=== PATIENT | male | born 1945 | race Caucasian/White ===

== ENCOUNTER 2019-01-06 22:54 | Inpatient (IN) | payer MEDICARE, OTHER ==
[~2019-01-06] VITALS: Ht 177.8 cm; Wt 74.8 kg
--- NOTE | 2019-01-06 22:54 | NUR ---
PT BIB AMBULANCE ALS TO BED 7
--- NOTE | 2019-01-06 22:55 | NUR ---
PT BIBA ALS S/P [facility] CALLING FOR PT HAVING SOB WORSENING OVER 30 MIN. ON ARRIVAL PT REPIRATIONS EVEN, TACHYPNEIC, WITH COURSE CRACKLES IN BILAT BASES. PT TACHYCARDIC AT 154, DIAPHORETIC AND PALE. +3 PITTING EDEMA IN BILAT LOWER EXTREMS. PLACED ON VENT ON ARRIVAL 92% SPO2 ON BVM. NO COMPLAINTS OF PAIN, NVPS USED. PT PLACED ON FULL MONITOR, BED IN LOW POSITION/LOCKED. SIDE RAILS UP X 1. DR. VAUGHN AT BEDSIDE.
[2019-01-06] MEDS ORDERED: NACL 0.9% 1,000 ML IV SCH (23:00)
[2019-01-06 23:05] VITALS: BP 114/71
[2019-01-06] MEDS ORDERED: ALBUTEROL SULFATE/IPRATROPIU 3 ML SOL IH ONE (23:05)
[2019-01-06] MEDS ORDERED: NACL 0.9% 1,000 ML IV ONE (23:05)
[2019-01-06] MEDS ORDERED: DOCU250S72 GT (23:06)
[2019-01-06] MEDS ORDERED: FERR325E14 GT (23:06)
[2019-01-06] MEDS ORDERED: OLAN2.5T1 GT (23:06)
[2019-01-06] MEDS ORDERED: ASCO500T45 PO (23:06)
[2019-01-06] MEDS ORDERED: SENN-72 GT (23:06)
[2019-01-06] MEDS ORDERED: MIRABULK GT (23:06)
[2019-01-06] MEDS ORDERED: AMLO5TAB GT (23:06)
[2019-01-06] MEDS ORDERED: METO-485 PO (23:06)
[2019-01-06] MEDS ORDERED: MIRT15TA GT (23:06)
[2019-01-06] MEDS ORDERED: GUAI-920 GT (23:06)
[2019-01-06] MEDS ORDERED: MULT-2253 GT (23:06)
--- NOTE | 2019-01-06 23:40 | NUR ---
PT AWAKE AND ALERT. VSS AT THIS TIME. BEDRAILS X2 UP. BED IN LOWEST POSITION. WILL CONTINUE TO MONITOR.
[2019-01-06 23:47] LABS: HEMATOCRIT 24.3 % (36-52); HEMOGLOBIN 7.9 g/dL (12.0-18.0); MEAN CORPUSCULAR HEMOGLOBIN 31 pg (27-31); MEAN CORPUSCULAR HGB CONC 33 g/dL (33-37); MEAN CORPUSCULAR VOLUME 94.3 fL (80-94); PLATELET COUNT (AUTO) 350 K/uL (140-450); RED BLOOD CELL COUNT(AUTO) 2.58 MIL/uL (4.20-6.10); RED CELL DISTRIBUTION WIDTH 16.1 % (11.6-13.7)
[2019-01-06 23:55] LABS: ANION GAP 8.3 (8-16); CARBON DIOXIDE 36.3 mmol/L (21-32); CHLORIDE 92 mmol/L (98-107); CREATININE 0.6 mg/dL (0.7-1.3); GLUCOSE 152 mg/dL (74-106); POTASSIUM 4.6 mmol/L (3.5-5.1); SODIUM SERUM 132 mmol/L (136-145); UREA NITROGEN, BLOOD 31 mg/dL (7-18)
[2019-01-06] MEDS ORDERED: DILTIAZEM 25 MG/5 ML VIAL IVP ONE (23:55)
[2019-01-07] VITALS (78 sets, daily range): BP systolic 81–139; BP diastolic 28–83
--- NOTE | 2019-01-07 00:05 | NUR ---
DILTIAZEM HELD AT THIS TIME, BP 92/53. ERMD MADE AWARE.
[2019-01-07 00:09] LABS: ALBUMIN 1.6 g/dL (3.4-5.0); ASPARTATE AMINOTRANSFERASE 77 U/L (15-37); TOTAL BILIRUBIN 0.2 mg/dL (0.0-1.0); WHITE BLOOD COUNT (AUTO) 16.8 K/uL (4.8-10.8)
[2019-01-07 00:10] LABS: EOSINOPHILS % (MANUAL) 1 % (0-4); LYMPHOCYTES % (MANUAL) 4 % (20-46); MONOCYTES % (MANUAL) 7 % (5-12)
[2019-01-07] MEDS ORDERED: PIPERACILLIN/TAZOBACTAM 3.375 GM in DEXTROSE 5% 50 ML IV ONE (00:15)
[2019-01-07] MEDS ORDERED: NACL 0.9% 1,000 ML IV ONE (00:15)
[2019-01-07] MEDS ORDERED: NACL 0.9% 1,000 ML IV SCH (00:28)
[2019-01-07] MEDS ORDERED: ONDANSETRON 4 MG/2 ML VIAL IM/IVP PRN (00:30)
[2019-01-07] MEDS ORDERED: MORPHINE SULFATE 2 MG/ML SYR IVP PRN (00:30)
[2019-01-07] MEDS ORDERED: PIPERACILLIN/TAZOBACTAM 3.375 GM VIAL IV ONE (00:30)
[2019-01-07] MEDS ORDERED: DOCUSATE SODIUM 100 MG GELCAP PO PRN (00:30)
[2019-01-07 00:58] LABS: PROTHROMBIN TIME 9.5 secs (10.8-13.4)
--- NOTE | 2019-01-07 01:00 | NUR ---
Dr. Raman evaluating patient
[2019-01-07 01:08] LABS: FREE T4 (FREE THYROXINE) 1.17 ng/dL (0.76-1.46); MAGNESIUM 2.6 mg/dL (1.8-2.4); PHOSPHORUS 4.2 mg/dL (2.5-4.9); THYROID STIMULATING HORMONE 6.27 uIU/mL (0.34-3.74)
--- NOTE | 2019-01-07 01:08 | NUR ---
IV to left forearm infiltrated. Dr. Patricio made aware. Dr. Raman made aware. Multiple attempts made to get new IV site and Dr. Patricio and Dr. Raman made aware.
--- NOTE | 2019-01-07 01:50 | NUR ---
Patient will be admitted to care of Dr De Leon. Admited to ICU. Will go to room ICU 1. Belongings list completed. Report to PAUL Buckner. Transfer of care at this time.
--- NOTE | 2019-01-07 02:10 | NUR ---
0200 transfered patient to icu 1. pt being bagged with 100%. pt placed back on vent with same settings.
--- NOTE | 2019-01-07 02:10 | NUR ---
PT REFUSED CENTRAL LINE. MD POLLARD AT BEDSIDE. PT REFUSED ALL VACCINES AND A LEVINE CATHETER. PATIENT'S SKIN IS INTACT. IV IN LEFT FOREARM, C/D/I AND PATENT. WILL CONTINUE TO MONITOR.
--- NOTE | 2019-01-07 02:30 | NUR ---
MD POLLARD MADE AWARE OF LAB RESULTS FOR PATIENT, INCLUDING ALBUMIN 1.6 WELL VS, EKG SVT HR 159. MD POLLARD TO INPUT ORDERS. PT AXOX3. WILL CONTINUE TO MONITOR.
[2019-01-07] MEDS ORDERED: AMIODARONE 150 MG in DEXTROSE 5% 100 ML IV ONE (02:40)
[2019-01-07] MEDS: AMIODARONE 450 MG in DEXTROSE 5% 250 ML IV SCH ×2 (02:56→12:07)
[2019-01-07] MEDS ORDERED: AMIODARONE 450 MG/9 ML VIAL IV ONE (03:00)
[2019-01-07] MEDS ORDERED: AMIODARONE 150 MG/3 ML VIAL IV ONE (03:00)
[2019-01-07] MEDS: DEXT 5% /NACL 0.9% 1,000 ML IV SCH ×3 (03:54→23:39)
--- NOTE | 2019-01-07 06:35 | NUR ---
RECVD PT ON [place] VENT SETTINGS: AC14, 500, +5, 40% ALARMS ON & AUDIBLE. AMBU BAG AT [facility], VENT IS PLUGGED INTO RED OUTLET, B/S CLEAR BILATERALLY, PT REFUSED SUCTIONING AT THIS TIME. PT IS TRACHED W/SHILEY #8. SKIN INTEGRITY IS INTACT, PT AWAKE AND ALERT W/NO SIGNS OF DISTRESS AT THIS TIME.
[2019-01-07] MEDS ORDERED: VANCOMYCIN PER PHARMACY MC PRN (06:55)
[2019-01-07] MEDS: METOCLOPRAMIDE 10 MG TAB GT SCH ×4 (06:56→23:29)
--- NOTE | 2019-01-07 07:30 | NUR ---
OBTAINED REPORT FROM ASSISTANT ACCOUNT EXECUTIVE NURSE AT BEDSIDE, PT IS AAOX4, MOUTH WORDS, ABLE TO FOLLOW COMMANDS AND MAKE NEEDS KNOWN, VSS, C/O PAIN TO ABDOMEN, 5/10, TRACH TO VENT WITH FIO2 40, TV 500, R 14, PEEP 5, RHONCHI LUNG SOUNDS WILFRED, O2 SAT 93%, SVT ON DRIVER SALES AT 150, SOFT ROUND ABDOMEN WITH ACTIVE BOWEL SOUNDS, GT IN PLACE, NPO EXCEPT MEDS AT THIS TIME, INCONTINENT WITH B&B'S, GENERALIZED WEAKNESS TO ALL EXTREMITIES, SKIN IS WARM AND DRY TO TOUCH, IV SITE TO LEFT FOREARM 20GA, PATENT, RUNNING AMIODARONE AT 1 MG/MIN, AND D5 NS AT 70ML/HR, HOB ELEVATED 30 DEGREES, SAFETY MEASURES IN PLACE, WILL CONTINUE TO MONITOR.
[2019-01-07] MEDS: SODIUM FERRIC GLUCONATE 125 MG in NACL 0.9% 100 ML IV SCH (07:58)
[2019-01-07] MEDS: POLYETHYLENE GLYCOL 17 GM/PKT GT SCH (08:01)
[2019-01-07] MEDS: HYDROcodone/APAP 7.5/325 MG 1 TAB PO PRN (08:01)
[2019-01-07] MEDS: LACTOBACILLUS RHAMNOSUS GG 1 EACH CAP PO SCH (08:01)
[2019-01-07] MEDS: DOCUSATE 100 MG/10 ML UDC GT SCH (08:01)
[2019-01-07] MEDS: FAMOTIDINE 20 MG/2 ML VIAL IVP SCH (08:02)
--- NOTE | 2019-01-07 08:15 | NUR ---
SCHEDULED MEDICATION GIVEN, ORAL CARE PROVIDED, POSITION CHANGED FOR OFF LOAD PRESSURE.
[2019-01-07] MEDS: PIPER/TAZO 3.375GM/D5W PREMIX 50 ML IV SCH ×3 (09:06→23:29)
[2019-01-07] MEDS: VANCOMYCIN 1,250 MG in DEXTROSE 5% 250 ML IV SCH ×2 (09:31→21:30)
--- NOTE | 2019-01-07 09:56 | NUR ---
PATIENT HAS BEEN SCREENED AND CATEGORIZED HIGH NUTRITION RISK. PATIENT WILL BE SEEN WITHIN 1-2 DAYS OF ADMISSION. 01/07/19-01/08/[address]
--- NOTE | 2019-01-07 10:00 | NUR ---
PT IS RESTING IN BED, NO S/S OF DISTRESS, DENIES PAIN, POSITION CHANGED FOR OFF LOAD PRESSURE.
--- NOTE | 2019-01-07 10:30 | NUR ---
HR STILL 151, INFORMED DR. BRENNAN, NEW ORDERED OBTAINED.
[2019-01-07] MEDS ORDERED: DIGOXIN 0.25 MG/ML AMP IV SCH (11:00)
--- NOTE | 2019-01-07 11:15 | NUR ---
HR WENT DOWN TO 71, BP 95/48, PT IS AAO, NO S/S OF DISTRESS, DENIES PAIN.
--- NOTE | 2019-01-07 12:00 | NUR ---
PT IS WATCHING TV, NO S/S OF DISTRESS, DENIES PAIN, VSS, ORAL CARE PROVIDED, POSITION CHANGED FOR OFF LOAD PRESSURE.
--- NOTE | 2019-01-07 12:59 | NUR ---
01/07/19 RD INITIAL ASSESSMENT COMPLETED PLEASE REFER TO NUTRITION ASSESSMENT UNDER CARE ACTIVITY FOR ESTIMATED NUTRITIONAL NEEDS. 1. INITIATE TF VIA PEG TUBE WITH JEVITY 1.2 @ GOAL RATE 60 ML/HR WITH 100 ML FWF Q4H TO PROVIDE 1728 CALORIES, 80 GRAMS PROTEIN, AND TOTAL FLUIDS 1762 ML. RECOMMENDED REGIMEN MEETS 97% ESTIMATED CALORIE NEEDS AND 89% LOWER ESTIMATED PROTEIN NEEDS. 2. RD TO FOLLOW-UP 2-3 DAYS, HIGH RISK OLGA [address]O RD
--- NOTE | 2019-01-07 13:10 | NUR ---
DR. GARCIA AT BEDSIDE TO EXPLAIN NEED FOR PICC LINE INSERTION. PT.AGREED. CONSENT SIGNED.
--- NOTE | 2019-01-07 13:15 | NUR ---
PICC LINE NURSE NOTIFIED OF NEED FOR PICC LINE INSERTION. STATED THAT [facility] WILL BE HERE TO INSERT PICC LINE. UNABLE TO GIVE ETA.
[2019-01-07 13:34] LABS: BASOPHILS % (AUTO) 0.1 % (0.0-2.0); EOSINOPHILS # (AUTO) 0.1 K/uL (0-0.4); EOSINOPHILS % (AUTO) 0.4 % (0.0-4.0); HEMATOCRIT 22.1 % (36-52); HEMOGLOBIN 7.2 g/dL (12.0-18.0); LYMPHOCYTES # (AUTO) 0.8 K/uL (2.0-11.5); LYMPHOCYTES % (AUTO) 4.4 % (20.5-51.1); MEAN CORPUSCULAR HEMOGLOBIN 31 pg (27-31); MEAN CORPUSCULAR HGB CONC 33 g/dL (33-37); MEAN CORPUSCULAR VOLUME 93.8 fL (80-94); MONOCYTES # (AUTO) 1.6 K/uL (0.8-1.0); MONOCYTES % (AUTO) 9.5 % (1.7-9.3); NEUTROPHILS # (AUTO) 14.8 K/uL (1.8-7.7); NEUTROPHILS % (AUTO) 85.6 % (42.2-75.2); PLATELET COUNT (AUTO) 322 K/uL (140-450); RED BLOOD CELL COUNT(AUTO) 2.36 MIL/uL (4.20-6.10); RED CELL DISTRIBUTION WIDTH 16.4 % (11.6-13.7); WHITE BLOOD COUNT (AUTO) 17.3 K/uL (4.8-10.8)
[2019-01-07 13:53] LABS: ANION GAP 7.8 (8-16); CARBON DIOXIDE 32.9 mmol/L (21-32); CHLORIDE 93 mmol/L (98-107); CREATININE 0.6 mg/dL (0.7-1.3); GLUCOSE 122 mg/dL (74-106); POTASSIUM 4.7 mmol/L (3.5-5.1); SODIUM SERUM 129 mmol/L (136-145); UREA NITROGEN, BLOOD 23 mg/dL (7-18)
--- NOTE | 2019-01-07 14:00 | NUR ---
NO CHANGE OF CONDITION, VSS, DENIES PAIN, POSITION CHANGED FOR OFF LOAD PRESSURE.
--- NOTE | 2019-01-07 15:30 | NUR ---
DR. GUERRERO CAME IN TO SEE PT AT BEDSIDE, UPDATED PT'S CONDITION, WILL FOLLOW UP WITH NEW ORDERS.
--- NOTE | 2019-01-07 16:00 | NUR ---
TEMP 101.6F NOTED, TYLENOL GIVEN, COOLING MEASURE IN PLACE, PM CARE AND ORAL CARE PROVIDED, F/C CARE PROVIDED, POSITION CHANGED FOR OFF LOAD PRESSURE, WILL CONTINUE TO MONITOR,
[2019-01-07] MEDS: ACETAMINOPHEN 325 MG TAB PO PRN (16:24)
--- NOTE | 2019-01-07 17:23 | NUR ---
TUBE FEEDING STARTED AT 10ML/HR
--- NOTE | 2019-01-07 18:00 | NUR ---
TEMP WENT DOWN TO 99.1F AT THIS TIME, NO S/S OF DISTRESS, VSS, DENIES PAIN, POSITION CHANGED FOR OFF LOAD PRESSURE.
[2019-01-07] MEDS ORDERED: AMIODARONE 200 MG TAB PO SCH (18:30)
--- NOTE | 2019-01-07 18:55 | NUR ---
RECEIVED TRACH PT WITH A SHILEY 8 XLT TRACH ON VENT. SETTINGS AC 14, VT 500, PEEP 5 AND 40% FIO2. PT SUCTIONED OBTAINED SMALL AMOUNT OF THICK YELLOW SECRETIONS, AIRWAY IS PATENT AND TRACH IS SECURE. PT IS AWAKE IN BED WATCHING NOT SOB. VENT IS PLUGGED INTO A RED OUTLET WITH ALARMS ON AND FUNCTIONING. WILL CONTINUE TO MONITOR.
--- NOTE | 2019-01-07 19:12 | NUR ---
REPORT GIVEN TO MANAGER STYLIST NURSE FOR CONTINUE OF CARE, PT IS IN STABLE CONDITION AT THIS TIME.
--- NOTE | 2019-01-07 19:15 | NUR ---
ASSUMED CARE OF PT.INITIAL ASSESSMENT COMPLETED.PT AWAKE; ABLE TO MOUTH WORD NEEDS.SR ON MONITOR.TRACH TO VENT FIO2 40% TV 500 AC 14 PEEP 5. RHONCHI STILL NOTED.PT WITH MODERATE AMT OF YELLOW SECRETIONS PER ORAL AND TRACH.SUCTIONED NEEDED.NO SOB NOTED AT THIS TIME.SLIGHT REDNESS TO LT SIDE TRACH SITE STILL NOTED.WITH GTUBE INTACT.ON GTUBE FEEDING JEVITY 1.2 AT 10ML/HR, TOLERATING ,NO RESIDUAL NOTED. WILL INCREASE RATE ORDERED.W/SMALL BRUISING TO BUE.PERIPHERAL IV TO LT F/A INTACT, INFUSING ORDERED IVF AND AMIODARONE DRIP 450MG IN 250ML D5W AT 0.5MG/MIN.WILL DC AMIODARONE DRIP AT [address] BRENNAN, PAPER MACHINE TENDER.PT INCONTINENT OF URINE.REMINDED TO USE CALL LIGHT FOR ASSISTANCE.BED IN LOW POSITION.DENIES PAIN.
--- NOTE | 2019-01-07 19:30 | NUR ---
DR Lina BRENNAN, CHANGE OF ADDRESS CLERK AT BEDSIDE; PT EXAMINED.HR 78 SINUS RHYTHM , PT DENIES CHEST PAIN/CHEST TIGHTNESS.AMIODARONE DRIP DC'D ORDERED.NO NEW ORDERS
--- NOTE | 2019-01-07 20:30 | NUR ---
PT TUBE FEEDING INCREASED TO 20ML/HR WITH 100ML WATER FLUSH Q4HRS ORDERED.PT TOLERATING.NO RESIDUALS NOTED.WILL CONTINUE TO MONITOR
[2019-01-07] MEDS: AMIODARONE 200 MG TAB PO SCH (21:00)
--- NOTE | 2019-01-07 21:03 | NUR ---
PHONE CALL TO DR POLLARD; UPDATED ON PTS PRESENT CONDITION.ONGOING PICC LINE INSERTION.PT AWAKE ALERT AND ORIENTED.HEMOGLOBIN LEVEL 7.2 hct 22.1 at 1238 DRAW; DR POLLARD SAID TO HOLD HEPARIN SUBQ AT THIS TIME.
--- NOTE | 2019-01-07 21:14 | NUR ---
PHONE CALL TO PHARMACIST REGARDING AMIODARONE DOSE 400MG AT 2100; AMIODARONE 400MG TAB GIVEN AT 1831, AMIODARONE ROSA DC'D AT 1930 ; PHARMACIST SAID TO VERIFY WITH MD; PHONE CALL TO DR POLLARD, INFORMED OF THE AMIODARONE DOSE; MD SAID NOT TO GIVE 2100 DOSE; TO START IN AM
--- NOTE | 2019-01-07 21:19 | NUR ---
US GUIDED PICC LINE INSERTION COMPLETED; XRAY DONE.PICC LINE NURSE WEST WROTE OK TO USE PICC LINE; DR POLLARD AWARE. PT TOLERATED THE PROCEDURE.NO SOB NOTED.SR ON MONITOR.NO ACTIVE BLEEDING NOTED ON SITE.DRESSING APPLIED BY PICC LINE NURSE.
[2019-01-07] MEDS: MIRTAZAPINE 15 MG TAB GT SCH (21:29)
[2019-01-07] MEDS: SENNA 8.6 MG TAB GT SCH (21:29)
[2019-01-07] MEDS: OLANZapine 2.5 MG TAB GT SCH (21:30)
[2019-01-07] MEDS: ALBUTEROL SULFATE/IPRATROPIU 3 ML SOL IH SCH (21:44)
--- NOTE | 2019-01-07 22:30 | NUR ---
PT INCONTINENT OF URINE.LINENS AND GOWN CHANGED.TOLERATED.NO SOB NOTED.HR 86 SR;DENIES PAIN
--- NOTE | 2019-01-07 23:20 | NUR ---
PT SUCTIONED OBTAINED SMALL AMOUNT OF THICK PALE YELLOW SECRETIONS, AIRWAY IS PATENT AND TRACH IS SECURE. WILL CONTINUE TO MONITOR.
[2019-01-07 23:55] LABS: APPEARANCE,URINE CLEAR (CLEAR); BILIRUBIN,URINE NEGATIVE (NEGATIVE); BLOOD, URINE NEGATIVE (NEGATIVE); COLOR,URINE YELLOW (YELLOW); LEUKOCYTE ESTERASE ,URINE NEGATIVE (NEGATIVE); NITRITE, URINE NEGATIVE (NEGATIVE); UGLUCOSE NEGATIVE (NEGATIVE)
[2019-01-08] VITALS (21 sets, daily range): BP systolic 11–131; BP diastolic 43–75
--- NOTE | 2019-01-08 00:54 | NUR ---
VENT CHECK COMPLETED, PT IN BED WATCHING TV NOT IN ANY DISTRESS. WILL CONTINUE TO MONITOR.
--- NOTE | 2019-01-08 01:20 | NUR ---
PT AWAKE; TUBE FEEDING CHECKED, NO RESIDUALS, FEEDING INCREASED TO 30ML/HR.PT DENIES N/V; DENIES PAIN.STILL WITH INTERMITTENT PRODUCTIVE COUGHING NOTED.ABLE TO SUCTION YELLOW THICK SECRETIONS.
--- NOTE | 2019-01-08 03:05 | NUR ---
PT ASLEEP AT THIS TIME NOT IN ANY DISTRESS. WILL CONTINUE TO MONITOR.
--- NOTE | 2019-01-08 03:45 | NUR ---
pt coughing intermittently; suctioned thick yellow secretions.02sat 99% trach to vent.same vent settings.
--- NOTE | 2019-01-08 04:45 | NUR ---
temporal temp 100.7 ;cooling measures rendered; tylenol administered as ordered.
[2019-01-08] MEDS: ACETAMINOPHEN 325 MG TAB PO PRN ×2 (04:48→20:22)
[2019-01-08] MEDS: METOCLOPRAMIDE 10 MG TAB GT SCH (05:18)
--- NOTE | 2019-01-08 05:30 | NUR ---
temp rechecked 99.8 temporal.pt asleep ;easily arousable.still on vent.secretions suctioned.no sob noted.denies pain
[2019-01-08] MEDS: ALBUTEROL SULFATE/IPRATROPIU 3 ML SOL IH SCH ×3 (07:02→19:00)
--- NOTE | 2019-01-08 07:03 | NUR ---
RECEIVED PT ON DOCUMENTED SETTINGS, ALARMS SET AND AUDIBLE, VENT PLUGGED INTO RED OUTLETS AND BVM AT BEDSIDE. NO DISTRESS NOTED AT THIS TIME
--- NOTE | 2019-01-08 08:00 | NUR ---
PATIENT AWAKE, ALERT ORIENTED, WITH TRACHEOSTOMY TO VENTILATOR AC 14 FIO2 40% PEEP 5 SO2 >94% NORMAL NON LABORED EVEN BREATHING, SINUS RHYTHM ON MONITOR, DENIES ANY PAIN AT THIS TIME, WITH PEG AND TUBE ON JEVITY 40ML/HR-CHECKED RESIDUALS AND ZERO AT THIS TIME, INCREASED JEVITY TO 50 ML/HR PER PROTOCOL, BLOATED NON TENDER ABDOMEN, NORMAL BOWEL SOUNDS, ON COLACE AND MIRALAX, INCONTINENT AND REFUSED LEVINE CATHETER INSERTION, SKIN INTACT, PURPLISH DISCOLORATION ON BOTH FOREARMS, CALL SCHUMACHER WITHIN REACH. WILL CONTINUE TO MONITOR
[2019-01-08] MEDS: DOCUSATE 100 MG/10 ML UDC GT SCH (08:08)
[2019-01-08] MEDS: POLYETHYLENE GLYCOL 17 GM/PKT GT SCH (08:08)
[2019-01-08] MEDS: LACTOBACILLUS RHAMNOSUS GG 1 EACH CAP PO SCH (08:09)
[2019-01-08] MEDS: AMIODARONE 200 MG TAB PO SCH ×2 (08:09→20:18)
[2019-01-08] MEDS: FAMOTIDINE 20 MG/2 ML VIAL IVP SCH (08:09)
[2019-01-08] MEDS: PIPER/TAZO 3.375GM/D5W PREMIX 50 ML IV SCH ×3 (08:10→23:16)
[2019-01-08] MEDS ORDERED: PROBIOTIC SCREEN 1 EA MISC MC PRN (08:10)
[2019-01-08 08:12] LABS: ANION GAP 10.5 (8-16); CARBON DIOXIDE 30.4 mmol/L (21-32); CHLORIDE 94 mmol/L (98-107); CREATININE 0.6 mg/dL (0.7-1.3); GLUCOSE 94 mg/dL (74-106); POTASSIUM 3.9 mmol/L (3.5-5.1); SODIUM SERUM 131 mmol/L (136-145); UREA NITROGEN, BLOOD 15 mg/dL (7-18)
[2019-01-08 08:32] LABS: MAGNESIUM 2.4 mg/dL (1.8-2.4); PHOSPHORUS 3.6 mg/dL (2.5-4.9)
[2019-01-08 08:39] LABS: MEAN CORPUSCULAR HEMOGLOBIN 31 pg (27-31); MEAN CORPUSCULAR HGB CONC 33 g/dL (33-37); MEAN CORPUSCULAR VOLUME 94.7 fL (80-94); PLATELET COUNT (AUTO) 319 K/uL (140-450); RED BLOOD CELL COUNT(AUTO) 2.13 MIL/uL (4.20-6.10); RED CELL DISTRIBUTION WIDTH 16.5 % (11.6-13.7); WHITE BLOOD COUNT (AUTO) 13.8 K/uL (4.8-10.8)
[2019-01-08 08:49] LABS: HEMATOCRIT 20.2 % (36-52); HEMOGLOBIN 6.7 g/dL (12.0-18.0)
[2019-01-08] MEDS: SODIUM FERRIC GLUCONATE 125 MG in NACL 0.9% 100 ML IV SCH (08:50)
[2019-01-08 09:19] LABS: EOSINOPHILS % (MANUAL) 2 % (0-4); LYMPHOCYTES % (MANUAL) 6 % (20-46); MONOCYTES % (MANUAL) 12 % (5-12)
[2019-01-08 09:20] LABS: FOLIC ACID 16.6 ng/mL (>3.0)
[2019-01-08] MEDS: VANCOMYCIN 1,250 MG in DEXTROSE 5% 250 ML IV SCH ×2 (09:42→20:23)
--- NOTE | 2019-01-08 11:01 | NUR ---
CONDOM CATHETER APPLIED AND SECURED, CONNECTED TO URO BAG. PATIENT CONSENTED TO IT. WILL CONTINUE TO MONITOR
--- NOTE | 2019-01-08 11:25 | NUR ---
DR. GUERRERO AT BEDSIDE. PHYSICIAN ORDERED TO RT ADELA TO DO CPAP TRIAL TODAY. IV FLUID TO KVO RATE-NOTED
[2019-01-08 11:29] LABS: MEAN CORPUSCULAR HEMOGLOBIN 31 pg (27-31); MEAN CORPUSCULAR HGB CONC 33 g/dL (33-37); MEAN CORPUSCULAR VOLUME 94.4 fL (80-94); PLATELET COUNT (AUTO) 322 K/uL (140-450); RED BLOOD CELL COUNT(AUTO) 2.19 MIL/uL (4.20-6.10); RED CELL DISTRIBUTION WIDTH 16.9 % (11.6-13.7); WHITE BLOOD COUNT (AUTO) 14.1 K/uL (4.8-10.8)
[2019-01-08 11:34] LABS: HEMOGLOBIN 6.8 g/dL (12.0-18.0)
[2019-01-08 11:35] LABS: HEMATOCRIT 20.7 % (36-52)
[2019-01-08] MEDS ORDERED: ACETAMINOPHEN 325 MG TAB PO SCH (11:40)
[2019-01-08 11:47] LABS: EOSINOPHILS % (MANUAL) 2 % (0-4); LYMPHOCYTES % (MANUAL) 5 % (20-46); MONOCYTES % (MANUAL) 10 % (5-12)
[2019-01-08] MEDS ORDERED: ACETAMINOPHEN 650 MG/20.3 ML UDC NG SCH (11:48)
[2019-01-08] MEDS ORDERED: diphenhydrAMINE 12.5 MG/5 ML UDC NG SCH (11:49)
--- NOTE | 2019-01-08 12:00 | NUR ---
ZERO GASTRIC RESIDUAL AT THIS TIME, JEVITY INCREASED TO 60ML/HR
[2019-01-08 12:39] LABS: BASOPHILS % (AUTO) 0.2 % (0.0-2.0); EOSINOPHILS # (AUTO) 0.2 K/uL (0-0.4); EOSINOPHILS % (AUTO) 1.2 % (0.0-4.0); LYMPHOCYTES # (AUTO) 0.6 K/uL (2.0-11.5); LYMPHOCYTES % (AUTO) 3.9 % (20.5-51.1); MEAN CORPUSCULAR HEMOGLOBIN 32 pg (27-31); MEAN CORPUSCULAR HGB CONC 34 g/dL (33-37); MEAN CORPUSCULAR VOLUME 93.9 fL (80-94); MONOCYTES # (AUTO) 1.6 K/uL (0.8-1.0); NEUTROPHILS # (AUTO) 12.3 K/uL (1.8-7.7); NEUTROPHILS % (AUTO) 83.7 % (42.2-75.2); PLATELET COUNT (AUTO) 339 K/uL (140-450); RED BLOOD CELL COUNT(AUTO) 2.22 MIL/uL (4.20-6.10); RED CELL DISTRIBUTION WIDTH 16.4 % (11.6-13.7); WHITE BLOOD COUNT (AUTO) 14.7 K/uL (4.8-10.8)
[2019-01-08] MEDS: METOCLOPRAMIDE 10 MG/10 ML SYRP UDC GT SCH ×3 (12:53→23:16)
[2019-01-08] MEDS: HYDROcodone/APAP 7.5/325 MG 1 TAB PO PRN (12:53)
[2019-01-08 12:54] LABS: HEMATOCRIT 20.9 % (36-52)
--- NOTE | 2019-01-08 13:00 | NUR ---
REPEAT CBC WAS DRAWN IN PATIENT'S ARM AND HGB RESULT FRO IT IS 7. DR. GARCIA MADE AWARE OF THIS RESULT, PATIENT HAS NO ACTIVE SIGNS OF BLEEDING. PER PHYSICIA "NO INDICATION" TO TRANSFUSE BLOOD AT THIS TIME"
--- NOTE | 2019-01-08 13:08 | NUR ---
PT RETURNED TO PREVIOUS A/C SETTINGS DUE TO ELEVATED RR
--- NOTE | 2019-01-08 13:30 | NUR ---
CALLED DR. GUERRERO AND UPDATED THAT PATIENT IS NOW BACK ON FULL SUPPORT PATIENT WENT TACHYPNEIC. NO FURTHER ORDERS RECEIVED
--- NOTE | 2019-01-08 13:55 | NUR ---
WOUND CARE NURSE AT BEDSIDE, REPOSITIONED PATIENT. ZGUARD APPLIE TO SACRAL AREAS AND GROINS TO PREVENT EXCORIATION FROM URINATION CONDOM CATHETER GETS DISCONNECTED IN BETWEEN. SKIN IS INTACT
--- NOTE | 2019-01-08 15:08 | NUR ---
PATIENT RESPIRATORY RATE 14-20 NOW, SO2 95% NON LABORED BREATHING
--- NOTE | 2019-01-08 17:19 | NUR ---
PT REFUSED TRACH CARE
--- NOTE | 2019-01-08 18:42 | NUR ---
GASTRIC RESIDUALS CHECKED=0ML
--- NOTE | 2019-01-08 19:10 | NUR ---
Received pt stable on vent support at documented settings, suctioned small amounts of thick white yellow secretions, hhn tx given, tolerated well, no resp distress or SOB noted at this time, Shiley 8 XLT trach secured/patent/midline, alarms set and audible, ambu bag at bedside, vent plugged into red outlet, cont pulse ox on, will cont to monitor.
--- NOTE | 2019-01-08 19:30 | NUR ---
RECEIVED PT FROM AM SHIFT. PT IS ALERT ORIENTED X4,MOUTH WORDS.PT IS ON TRACH TO VENT WITH SETTING AC RATE 14,TV 500,FIO2 40% AND PEEP OF 5 TOLERATING WELL, NO S/S OF ANY DISTRESS,NO SOB. SPO2 97%. ON RIDING SILKS CUSTODIAN SR WITH BBB PT WITH HX OF A FIB. PICC LINE TO RIGHT UPPER ARM DOUBLE LUMENS IV D5 IN NS AT 5 CC/HR. PERIPHERAL LINE TO LFA NO 20 INTACT WELL.SKIN WARM TO TOUCH T 100.4,COOL MEASURE GIVEN . GT TO LEFT UPPER QUADRANT ABD. FEEDING JEVITY 1.2 AT 60 CC/HR AND 100 CC/HR H20. NO RESIDUAL NOTED. ABD SOFT DISTENDED AND ROUND. PT NO BM YET PER REPORT. CONDOM CATH IN PLACE WITH YELLOW CLEAR URINE. CONT TO MONITOR CLOSELY.
[2019-01-08] MEDS: OLANZapine 2.5 MG TAB GT SCH (20:19)
[2019-01-08] MEDS: SENNA 8.6 MG TAB GT SCH (20:19)
[2019-01-08] MEDS: MIRTAZAPINE 15 MG TAB GT SCH (20:19)
--- NOTE | 2019-01-08 20:30 | NUR ---
PT STILL HAVE FEVER T 100.4, TYLENOL GIVEN ORDER AND CONT COOLING MEASURE. NIGHTS MEDS GIVEN VANCOMYCIN IV ABT GIVEN ORDER.
--- NOTE | 2019-01-08 21:00 | NUR ---
RECHECK TEMP,NO MORE FEVER TEMP DOWN TO T 97.2. CONT TO MONITOR. PT LOOK CALM AND WATCHING TV. DENIAL ANY PAIN.
--- NOTE | 2019-01-08 23:30 | NUR ---
REGLAN AND ZOSYN IV ABT GIVEN. TOLERATED WELL.
[2019-01-09] VITALS (14 sets, daily range): BP systolic 93–132; BP diastolic 41–52
--- NOTE | 2019-01-09 01:27 | NUR ---
PT SLEEP WELL, NO S/S OF ANY PAIN OR DISCOMFORT.
--- NOTE | 2019-01-09 04:00 | NUR ---
AM CARE GIVEN, RODGER CARE GIVEN,MOUTH CARE GIVEN AND SPONGE BATH GIVEN. KEPT CLEAN AND DRY.CALL LIGHT IN REACH.
[2019-01-09] MEDS: DEXT 5% /NACL 0.9% 1,000 ML IV SCH (05:07)
[2019-01-09] MEDS: METOCLOPRAMIDE 10 MG/10 ML SYRP UDC GT SCH ×3 (05:07→18:11)
--- NOTE | 2019-01-09 05:44 | NUR ---
AM MEDS GIVEN TOLERATING WELL.
[2019-01-09 05:51] LABS: ANION GAP 8.3 (8-16); CARBON DIOXIDE 32.7 mmol/L (21-32); CHLORIDE 97 mmol/L (98-107); CREATININE 0.6 mg/dL (0.7-1.3); GLUCOSE 112 mg/dL (74-106); SODIUM SERUM 134 mmol/L (136-145); UREA NITROGEN, BLOOD 13 mg/dL (7-18)
--- NOTE | 2019-01-09 05:55 | NUR ---
PT NO BM YET AT THIS TIME WILL ENDORESED TO NEXT SHIFT TO COLLECT THE STOOL FOR OCCULT BLOOD. NO S/S OF BLEEDING.
[2019-01-09] MEDS: ALBUTEROL SULFATE/IPRATROPIU 3 ML SOL IH SCH ×3 (07:08→18:53)
--- NOTE | 2019-01-09 07:19 | NUR ---
STARTED PT ON CPAP TRIAL 1-2 HRS EFREN (RR 20, HR 76, SPO2 98 ON 40% FIO2)
--- NOTE | 2019-01-09 07:19 | NUR ---
RECEIVED PT ON DOCUMENTED SETTINGS, ETT SECURED AND PATENT, ALARMS SET AND AUDIBLE, BVM AT BEDSIDE, VENTILATOR PLUGGED IN TO RED OUTLETS. NO DISTRESS NOTED AT THIS TIME.
--- NOTE | 2019-01-09 07:20 | NUR ---
REPORT GIVEN TO AM SHIFT.PT IS STABLE.
--- NOTE | 2019-01-09 08:00 | NUR ---
PATIENT AWAKE, ALERT ORIENTED, WITH TRACHEOSTOMY TO VENTILATOR AC 14 FIO2 40% PEEP 5 SO2 >94% NORMAL NON LABORED EVEN BREATHING, SINUS RHYTHM ON MONITOR, DENIES ANY PAIN AT THIS TIME, WITH PEG AND TUBE ON JEVITY 60ML/HR.-CHECKED RESIDUALS AND ZERO AT THIS TIME, BLOATED NON TENDER ABDOMEN, NORMAL BOWEL SOUNDS, ON COLACE AND MIRALAX, INCONTINENT ON CONDOM CATHETER, SKIN INTACT, PURPLISH DISCOLORATION ON BOTH FOREARMS AND RIGHT UPPER HIP AREA, CALL SCHUMACHER WITHIN REACH. WILL CONTINUE TO MONITOR
[2019-01-09 08:15] LABS: MAGNESIUM 2.4 mg/dL (1.8-2.4); PHOSPHORUS 4.5 mg/dL (2.5-4.9)
[2019-01-09] MEDS: SODIUM FERRIC GLUCONATE 125 MG in NACL 0.9% 100 ML IV SCH (08:15)
[2019-01-09] MEDS: PIPER/TAZO 3.375GM/D5W PREMIX 50 ML IV SCH ×2 (08:24→18:11)
--- NOTE | 2019-01-09 08:30 | NUR ---
DR. GARCIA MADE AWARE THAT STOOL FOR OCCULT BLOOD NOT YET SENT PATIENT HAS NO BOWEL MOVEMENT YET. NO FURTHER ORDERS RECEIVED
[2019-01-09 08:31] LABS: BASOPHILS % (AUTO) 0.1 % (0.0-2.0); EOSINOPHILS # (AUTO) 0.3 K/uL (0-0.4); EOSINOPHILS % (AUTO) 2.3 % (0.0-4.0); LYMPHOCYTES # (AUTO) 0.6 K/uL (2.0-11.5); MEAN CORPUSCULAR HEMOGLOBIN 32 pg (27-31); MEAN CORPUSCULAR HGB CONC 34 g/dL (33-37); MEAN CORPUSCULAR VOLUME 95.2 fL (80-94); MONOCYTES # (AUTO) 1.6 K/uL (0.8-1.0); MONOCYTES % (AUTO) 12.9 % (1.7-9.3); NEUTROPHILS # (AUTO) 9.8 K/uL (1.8-7.7); NEUTROPHILS % (AUTO) 79.7 % (42.2-75.2); PLATELET COUNT (AUTO) 338 K/uL (140-450); RED BLOOD CELL COUNT(AUTO) 2.12 MIL/uL (4.20-6.10); RED CELL DISTRIBUTION WIDTH 16.5 % (11.6-13.7); WHITE BLOOD COUNT (AUTO) 12.3 K/uL (4.8-10.8)
[2019-01-09 08:34] LABS: HEMOGLOBIN 6.8 g/dL (12.0-18.0)
[2019-01-09 08:35] LABS: HEMATOCRIT 20.2 % (36-52)
[2019-01-09] MEDS: DOCUSATE 100 MG/10 ML UDC GT SCH (08:50)
[2019-01-09] MEDS: POLYETHYLENE GLYCOL 17 GM/PKT GT SCH (08:50)
[2019-01-09] MEDS: AMIODARONE 200 MG TAB PO SCH ×2 (08:50→21:30)
[2019-01-09] MEDS: FAMOTIDINE 20 MG/2 ML VIAL IVP SCH (08:50)
[2019-01-09] MEDS: LACTOBACILLUS RHAMNOSUS GG 1 EACH CAP PO SCH (08:50)
[2019-01-09] MEDS: Z-GUARD PASTE TP SCH (08:51)
--- NOTE | 2019-01-09 09:00 | NUR ---
PLACED PT BACK ON ORIGINAL A/C SETTINGS DUE TO TACHYPNEA (RR 46, HR 82, SPO2 98 ON 40% FIO2)
[2019-01-09] MEDS: VANCOMYCIN 1,250 MG in DEXTROSE 5% 250 ML IV SCH ×2 (09:25→21:31)
--- NOTE | 2019-01-09 10:18 | NUR ---
CALLED BLOOD BANK STAFF TO ASK IF PACKED CELL IS READY AND IT IS NOT AND THEY WILL THIS RN AGAIN ONCE READY
--- NOTE | 2019-01-09 11:15 | NUR ---
BLOOD TRANSFUSION STARTED. VERIFIED WITH ICU CN MARLA. WILL CONTINUE TO MONITOR
[2019-01-09] MEDS: FUROSEMIDE 20 MG TAB PO SCH ×2 (11:31→18:00)
[2019-01-09] MEDS ORDERED: ACETAMINOPHEN 325 MG TAB PO SCH (12:00)
--- NOTE | 2019-01-09 14:09 | NUR ---
BLOOD TRANSFUSION ENDED. PATIENT NOT SHOWING ANY REACTIONS SO FAR. BP115/50, HEART RATE 80 BPM, SO2 94% Addendum: 01/09/19 at 1411 by Rukhsana Samson RN TEMPORAL TEMPERATURE 98.8f
--- NOTE | 2019-01-09 14:19 | NUR ---
CALLED DR. BRENNAN AND UPDATED HIM OF PATIENT'S CONDITION: OCCASIONAL UNIFOCAL PVCs NOTED, RELAYED CHEMISTRY RESULT TODAY AND K+, Mg NORMAL, PATIENT DENIES PAIN AND STATUS POST 1 UNIT PACKED CELL TRANSFUSION DUE TO HEMOGLOBIN 6.8 AND PATIENT WILL BE TRANSFERRED TO TELEMETRY. "OK TO BE TRANSFERRED TO TELEMETRY AND CONTINUE TO MONITOR" PER PHYSICIAN
--- NOTE | 2019-01-09 15:15 | NUR ---
TRANSFERRED PATIENT TO TELEMETRY VIA ICU BED AND ON MONITOR, WITH RT . BELONGINGS BROUGHT WITH PATIENT . PATIENT HAD 650 URINE OUTPUT FROM UROBAG AND REPORT GIVEN TO DARRIN MILLER. PATIENT ALERT ORIENTED, NO SIGNS OF DISTRESS.
--- NOTE | 2019-01-09 15:15 | NUR ---
TRANSFERRED PT FROM ICU 1 TO [facility] 122B PT BAGGED WITH NO DITRESS NOTED BEFORE DURING OR AFTER TRANSPORT. PT RETURNED TO PREVIOUS A/C SETTINGS VENTILATOR PLUGGED INTO RED OUTLETS AND BVM AT BEDSIDE.
--- NOTE | 2019-01-09 15:30 | NUR ---
REPORT RECEIVED FROM INTERNIST TANISHA. PATIENT TRANSFERRED TO ROOM 122B. PATIENT TRACH TO VENT, AWAKE AND ALERT, USES CLIPBOARD TO VERBALIZE HIS NEEDS. PATIENT CURRENTLY HAS GTUBE TO LEFT UPPER QUADRANT, GTUBE AUSCULTATED FOR PLACEMENT, 0 ML OF RESIDUAL NOTED. PATIENT HAS PICC LINE TO RIGHT UPPER ARM DOUBLE LUMEN, INTACT, AND SALINE LOCKED, LFA 20G SALINE LOCKED. PATIENT HAS CONDOM CATH, DRAINING YELLOW URINE. PATIENT DENIES PAIN. SAFETY PRECAUTIONS IN PLACE, CALL LIGHT WITHIN REACH, WILL CONTINUE TO MONITOR PATIENT.
--- NOTE | 2019-01-09 16:15 | NUR ---
PATIENT SUCTIONED WITH SECRETIONS MULTIPLE TIMES. PATIENT REPOSITIONED FOR COMFORT. PATIENT CURRENTLY TACHYPNIC. PATIENT SUCTIONED AGAIN. RT CALLED. WAITING FOR RT TO COME AND ASSESS THE PATIENT. SAFETY PRECAUTIONS IN PLACE, CALL LIGHT WITHIN REACH, WILL CONTINUE TO MONITOR PATIENT.
[2019-01-09] MEDS: ALBUTEROL SULFATE/IPRATROPIU 3 ML SOL IH PRN ×2 (17:01→17:26)
--- NOTE | 2019-01-09 17:02 | NUR ---
PATIENT PRESENTING WITH INCREASED SOB AT 33 BPM BREATH SOUNDS COARSE RHONCHI BILATERAL WITH SHALLOW CHEST RISE DEEP TRACHEAL SUCTION FOR MODERATE THIN YELLOW SECRETION OROPHARYNGEAL SUCTION FOR COPIOUS PALE YELLOW TO HAZY SECRETIONS HHN PRN THERAPY AND RESPIRATORY DRUGS X 2 GIVEN AT THIS TIME
--- NOTE | 2019-01-09 17:12 | NUR ---
INFORMED DR. CHILDS ABOUT PATIENT'S BLOOD TRANSFUSION BEING FINISHED, WAITING FOR NEW ORDERS. RT STILL WITH PATIENT. WILL CONTINUE TO MONITOR PATIENT.
[2019-01-09 17:50] LABS: HEMATOCRIT 28.3 % (36-52); HEMOGLOBIN 9.4 g/dL (12.0-18.0); MEAN CORPUSCULAR HEMOGLOBIN 31 pg (27-31); MEAN CORPUSCULAR HGB CONC 33 g/dL (33-37); MEAN CORPUSCULAR VOLUME 92.6 fL (80-94); PLATELET COUNT (AUTO) 452 K/uL (140-450); RED BLOOD CELL COUNT(AUTO) 3.06 MIL/uL (4.20-6.10)
--- NOTE | 2019-01-09 17:52 | NUR ---
PATIENT AGITATED, REQUESTED FOR MEDICATION TO CALM HIM DOWN. CALLED THE RESIDENTS, NO ANSWER AT THE MOMENT, WILL FOLLOW UP.
--- NOTE | 2019-01-09 18:20 | NUR ---
ORDERED MEDICATIONS GIVEN. GTUBE AUSCULTATED FOR PLACEMENT, 0 ML OF RESIDUAL NOTED. MEDICATIONS GIVEN WITH 20 ML OF WATER. PATIENT TOLERATED IT WELL. SAFETY PRECAUTIONS IN PLACE, CALL LIGHT WITHIN REACH, WILL CONTINUE TO MONITOR PATIENT.
[2019-01-09 18:38] LABS: EOSINOPHILS % (MANUAL) 1 % (0-4); LYMPHOCYTES % (MANUAL) 7 % (20-46); MONOCYTES % (MANUAL) 10 % (5-12)
--- NOTE | 2019-01-09 19:07 | NUR ---
REPORT GIVEN TO FASHION ADVISER NURSE AT BEDSIDE FOR CONTINUITY OF CARE. PATIENT IN STABLE CONDITION.
--- NOTE | 2019-01-09 19:08 | NUR ---
RECEIVED PT FROM AM SHIFT, PATIENT AWAKE, ALERT ORIENTED, WITH COMMUNICATION BOARD, WITH TRACHEOSTOMY TO VENTILATOR AC, FIO2 40% PEEP 5, FLOW 40, PMAX 50; VT 500; NORMAL NON LABORED EVEN BREATHING, DENIES ANY PAIN AT THIS TIME, WITH PEG TUBE ON JEVITY 1. 2 60ML/HR, CHECKED RESIDUALS AND 5ML AT THIS TIME, DISTENDED NON TENDER ABDOMEN, NORMAL BOWEL SOUNDS, INCONTINENT ON CONDOM CATHETER, SKIN INTACT, PURPLISH DISCOLORATION ON BOTH FOREARMS AND RIGHT UPPER HIP AREA, CALL SCHUMACHER WITHIN REACH. WILL CONTINUE TO MONITOR
--- NOTE | 2019-01-09 19:08 | NUR ---
RECEIVED PATIENT CHRONIC TRACH SHILEY 8 XLT TO VENT ON SETTINGS AC/VC 500, 14, +5, 40%. VENT CHECK DONE. VENT PLUGGED INTO RED OUTLET. AMBU BAG AT BEDSIDE. VENT ALARMS ON AND AUDIBLE. CONTINUOUS PULSE OX ON AND FUNCTIONING; ALARMS ON AND AUDIBLE. PULSE OX PROBE CHANGED. SCHEDULED BREATHING TREATMENT ADMINISTERED. TOLERATED TX WELL, NO ADVERSE SIDE EFFECTS. AIRWAY SECURE. PATIENT REFUSING TO BE SUCTIONED AT THIS TIME. NO RESPIRATORY DISTRESS NOTED AT THIS TIME. WILL CONTINUE TO MONITOR.
[2019-01-09] MEDS ORDERED: VANCOMYCIN 1,000 MG VIAL ONE (21:13)
[2019-01-09] MEDS: OLANZapine 2.5 MG TAB GT SCH (21:28)
[2019-01-09] MEDS: SENNA 8.6 MG TAB GT SCH (21:29)
[2019-01-09] MEDS: MIRTAZAPINE 15 MG TAB GT SCH (21:30)
--- NOTE | 2019-01-09 23:10 | NUR ---
WITH RN AT PATIENT BEDSIDE. PATIENT APPEARS TO HAVE G-TUBE FEEDING CONTENTS AND FLUIDS LEAKING THROUGH TACH STOMA. TRACH DRESSING AND CLOTHING SATURATED IN FLUIDS. BREATH SOUNDS RHONCHI. SUCTIONED SMALL AMOUNT OF THICK YELLOW SECRETIONS. CALLED DR. POLLARD TO COME ASSESS PATIENT AT BEDSIDE.
--- NOTE | 2019-01-09 23:25 | NUR ---
DR. POLLARD INFORMED PT IS DISTENDED, RT AT BEDSIDE ASKED HER TO CHANGE THE TRACH DRESSING. ALTHOUGH RT HAS JUST HAS CHANGED IT 20 MINS AGO.
--- NOTE | 2019-01-09 23:30 | NUR ---
DR. POLLARD AT BEDSIDE, HE ORDERED TO STOP THE FEEDING AT THIS TIME. WILL WAIT FOR FURTHER ORDERS.
[2019-01-10] VITALS: BP 108/56
[2019-01-10] MEDS: PIPER/TAZO 3.375GM/D5W PREMIX 50 ML IV SCH ×2 (00:48→08:41)
--- NOTE | 2019-01-10 01:00 | NUR ---
INFORMED DR. POLLARD THAT VITAL SIGNS ARE WNL; BUT ECG IS QUADRIGEMINY.PT IS DIAPHORETIC; GASTRIC FEEDING COMING OUT OF THE TRACH SITE. RT AT BEDSIDE CHANGING TRACH DRESSING, SUNCTIONED PT. AWAITING FOR 'S ORDERS
[2019-01-10] MEDS: METOCLOPRAMIDE 10 MG/10 ML SYRP UDC GT SCH ×5 (01:02→23:44)
--- NOTE | 2019-01-10 01:18 | NUR ---
RADIOLOGY HERE, AND DID XRAY OF THE CHEST 1 VIEW.
--- NOTE | 2019-01-10 01:46 | NUR ---
SUCTIONED MODERATE AMOUNT OF THIN, YELLOW SECRETIONS
--- NOTE | 2019-01-10 03:15 | NUR ---
INFORMED DR. POLLARD ON THE XRAY RESULT -IMPRESSION SMALL BILATERAL EFFUSION, R LOWER LOBE PNA, STABLE. PT HAD NOT SLEPT THE WHOLE NIGHT.
[2019-01-10 04:00] VITALS: BP 131/67
--- NOTE | 2019-01-10 04:32 | NUR ---
CHECKED ON PT, CLEANED AND TURNED PT. STILL GT TUBE CONTENTS SEEPING THROUGH GT TUBE, MODERATE AMOUNT.
--- NOTE | 2019-01-10 05:59 | NUR ---
LARGE AMOUNT OF BLACK STOOL NOTED, PT'S STILL ABDOMEN DISTENDED, LESS DISTENDED THAN LAST NIGHT . STILL W/ G-TUBE FEEDING COMING OUT FROM THE TRACH SITE, MINIMAL AMOUNT. WILL INFORM
[2019-01-10] MEDS: ALBUTEROL SULFATE/IPRATROPIU 3 ML SOL IH SCH ×3 (07:03→20:28)
--- NOTE | 2019-01-10 07:13 | NUR ---
RECEIVED TRACH PT WITH A SHILEY 8 XLT TRACH ON VENT. SETTINGS AC 14, VT 500, PEEP 5 AND 40% FIO2. PT SUCTIONED OBTAINED SMALL AMOUNT OF THICK YELLOW SECRETIONS, AIRWAY IS PATENT AND TRACH IS SECURE. PT IS AWAKE IN BED WATCHING TV NOT SOB. VENT IS PLUGGED INTO A RED OUTLET WITH ALARMS ON AND FUNCTIONING. WILL CONTINUE TO MONITOR.
--- NOTE | 2019-01-10 07:16 | NUR ---
RECEIVED PT FROM BILINGUAL SALES CONSULTANT RN. PATIENT AAOX4 WITH COMMUNICATION BOARD TO COMMUNICATE NEEDS. TRACHEOSTOMY TO VENTILATOR. BREATHING IS NORMAL AND NON-LABORED AT THIS TIME. PT DENIES ANY PAIN AT THIS TIME. G-TUBE FEEDING ON HOLD AT THIS TIME DUE TO ABD DISTENDED BUT NON-TENDER. NORMAL BOWEL SOUNDS. INCONTINENT. SKIN INTACT BUT PURPLISH DISCOLORATION ON BOTH FOREARMS AND RIGHT UPPER HIP AREA, CALL SCHUMACHER WITHIN REACH. WILL CONTINUE TO MONITOR.
--- NOTE | 2019-01-10 07:25 | NUR ---
PT AWAKEA, O X 4, IN BED, NO DISTRESS AT THIS TIME ENDORSED TO NEXT SHIFT FOR CONTINUITY OF CARE.
[2019-01-10 08:00] VITALS: BP 119/81
[2019-01-10] MEDS: POLYETHYLENE GLYCOL 17 GM/PKT GT SCH (08:41)
[2019-01-10] MEDS: LACTOBACILLUS RHAMNOSUS GG 1 EACH CAP PO SCH (08:42)
[2019-01-10] MEDS: DOCUSATE 100 MG/10 ML UDC GT SCH (08:42)
[2019-01-10] MEDS: AMIODARONE 200 MG TAB PO SCH (08:43)
[2019-01-10] MEDS: FAMOTIDINE 20 MG/2 ML VIAL IVP SCH (08:43)
[2019-01-10] MEDS: Z-GUARD PASTE TP SCH (08:44)
--- NOTE | 2019-01-10 08:45 | NUR ---
SCHEDULED MEDS ADMINISTERED TO PT. PT TOLERATED THEM WELL. ALL NEEDS MET AT THIS TIME. WILL RESTART FEEDING AT 40ML/HR ORDERED. ALL NEEDS CURRENTLY MET. WILL ROUND FREQUENTLY ON PT.
--- NOTE | 2019-01-10 09:16 | NUR ---
PT FEEDING RESTARTED AT 40ML/HR. WILL REASSESS FOR RESIDUAL Q1H.
--- NOTE | 2019-01-10 09:57 | NUR ---
PT IS REFUSING PT EVAL AT THIS TIME. PT IN STABLE CONDITION, DR AWARE OF REFUSAL.
--- NOTE | 2019-01-10 10:15 | NUR ---
PT TOLERATING FEEDING WELL. NO RESIDUALS PRESENT. A LOT OF GAS REMOVED THROUGH G-TUBE.
[2019-01-10] MEDS: SIMETHICONE 40 MG/0.6 ML GT SCH ×3 (10:32→17:23)
[2019-01-10] MEDS: VANCOMYCIN 1,250 MG in DEXTROSE 5% 250 ML IV SCH (10:34)
[2019-01-10] MEDS: NACL 0.9% 500 ML IV SCH (10:51)
--- NOTE | 2019-01-10 10:57 | NUR ---
PT SLEEPING IN BED. NO SIGNS OF PAIN. NO RESIDUAL FROM FEEDING. WILL CONTINUE TO ROUND FREQUENTLY.
[2019-01-10 12:00] VITALS: BP 131/53
--- NOTE | 2019-01-10 12:59 | NUR ---
01/10/19 RD FOLLOW UP COMPLETED PLEASE REFER TO NUTRITION ASSESSMENT UNDER CARE ACTIVITY FOR ESTIMATED NUTRITIONAL NEEDS. 1. CONTINUE JEVITY 1.2 AT 40 ML/HR MEDICALLY NECESSARY -THIS WILL PROVIDE A VOLUME OF 960 ML, 1152 KCAL, AND 53 GM PRO. IT MEETS 65% OF PT ENERGY NEEDS AND 59% OF PROTEIN NEED. 2. ADVANCE TUBE FEED RATE TO 60 ML/HR WHEN PT IS MEDCIALLY STABLE TO TOLERATE HIGHER RATE 3. RD TO FOLLOW-UP 2-3 DAYS, HIGH RISK PAM VAIL RD
[2019-01-10] MEDS ORDERED: MEROPENEM 1,000 MG in NACL 0.9% 100 ML IV SCH (13:00)
--- NOTE | 2019-01-10 13:04 | NUR ---
PT RESTING IN BED WITH TV ON. CO COMPLAINTS OF PAIN OR DISTRESS AT THIS TIME. VITAL SIGNS STABLE. WILL CONTINUE TO ROUND FREQUENTLY ON PT.
[2019-01-10] MEDS: CLINDAMYCIN PHOS 600MG/D5W PM 50 ML IV SCH ×2 (13:39→20:29)
[2019-01-10] MEDS: LEVOFLOXACIN 750 MG/D5W PREMIX 150 ML IV SCH (14:47)
[2019-01-10 15:02] LABS: MEAN CORPUSCULAR HEMOGLOBIN 31 pg (27-31); MEAN CORPUSCULAR HGB CONC 34 g/dL (33-37); MEAN CORPUSCULAR VOLUME 93.2 fL (80-94); PLATELET COUNT (AUTO) 352 K/uL (140-450); RED BLOOD CELL COUNT(AUTO) 2.57 MIL/uL (4.20-6.10); WHITE BLOOD COUNT (AUTO) 14.2 K/uL (4.8-10.8)
[2019-01-10 15:39] LABS: EOSINOPHILS % (MANUAL) 3 % (0-4); LYMPHOCYTES % (MANUAL) 5 % (20-46); PROMYELOCYTES % 2 % (0-0)
--- NOTE | 2019-01-10 15:47 | NUR ---
PT RESTING IN BED. NO SIGNS OF DISTRESS AT THIS TIME. WILL CONTINUE TO ROUND FREQUENTLY. CALL LIGHT WITHIN REACH.
[2019-01-10 15:49] LABS: ANION GAP 8.2 (8-16); CARBON DIOXIDE 30.9 mmol/L (21-32); CHLORIDE 98 mmol/L (98-107); CREATININE 1.1 mg/dL (0.7-1.3); GLUCOSE 109 mg/dL (74-106); POTASSIUM 3.1 mmol/L (3.5-5.1); SODIUM SERUM 134 mmol/L (136-145); UREA NITROGEN, BLOOD 22 mg/dL (7-18)
[2019-01-10 15:52] LABS: MAGNESIUM 2.4 mg/dL (1.8-2.4); PHOSPHORUS 3.8 mg/dL (2.5-4.9)
[2019-01-10 16:00] VITALS: BP 108/51
--- NOTE | 2019-01-10 16:45 | NUR ---
PT IN BED WATCHING TV NOT IN ANY DISTRESS AT THIS TIME. WILL CONTINUE TO MONITOR.
[2019-01-10] MEDS ORDERED: POTASSIUM CHLORIDE 20% 40 MEQ/15 ML UDC GT SCH (18:00)
--- NOTE | 2019-01-10 18:11 | NUR ---
PT ASLEEP. NO SIGNS OF DISTRESS. WILL CONTINUE TO RO8ND FREQUENTLY.
--- NOTE | 2019-01-10 18:30 | NUR ---
PT TOLERATING FEEDING WELL. NO RESIDUAL NOTED. GAS REMOVED FROM G-TUBE.
--- NOTE | 2019-01-10 19:10 | NUR ---
RECEIVED REPORT FROM DAY SHIFT NURSE. TRACH TO VENT. ABLE TO MAKE NEEDS KNOWN BY MOUTHING WORDS. NO C/O PAIN OR SOB. SKIN INTACT. PT HAS PICC LINE DOUBLE LUMEN TO RIGHT UPPER ARM, PATENT AND INTACT. G-TUBE IN PLACE WITH FEEDING JEVITY 1.2 AT 40 ML/HR, INFUSING WELL. SAFETY PRECAUTION IN PLACE. CALL LIGHT WITHIN REACH.
--- NOTE | 2019-01-10 19:26 | NUR ---
ENDORSED PT TO TRIAL LAWYER FOR CONTINUITY OF CARE. PT IN STABLE CONDITION AT THIS TIME.
[2019-01-10 20:00] VITALS: BP 109/67
[2019-01-10] MEDS: OLANZapine 2.5 MG TAB GT SCH (20:25)
[2019-01-10] MEDS: MIRTAZAPINE 15 MG TAB GT SCH (20:26)
[2019-01-10] MEDS: SENNA 8.6 MG TAB GT SCH (20:26)
[2019-01-10] MEDS: CARVEDILOL 12.5 MG TAB PO SCH (20:27)
--- NOTE | 2019-01-10 20:29 | NUR ---
RECEIVED ON A [employer] CARESCAPE R860 VENTILATOR PLUGGED INTO RED OUTLET TOLERATING WELL WITHOUT ADVERSE REACTIONS NOTED TO A SHILEY XLT #8 AIRWAY SECURED WITH A COSMO TRACH TIE CUFF PRESSURE CHECKED NOTED BRIANNA CHRIS CONTINOUS PULSE OXIMETER AT BEDSIDE ON ADN FUNCTIONING WELL LOW SATURATION ALARM SET AT 92% AMBU BAG AT HOB LOC AWAKE AND ALERT "MOUTHING WORDS" GOOD CHEST RISE BREATH SOUNDS COARSE RHONCHI BILATERAL DEEP TRACHEAL SUCTION FOR LARGE THICK YELLOW SECRETIONS AIRWAY PATENT
--- NOTE | 2019-01-10 20:30 | NUR ---
CHECKED GT RESIDUAL 5 ML. DUE MEDS GIVEN. PT TOLERATED WELL.
[2019-01-10] MEDS ORDERED: CARVEDILOL 3.125 MG TAB PO SCH (21:00)
--- NOTE | 2019-01-10 21:24 | NUR ---
RESTING COMFORTABLY NO SOB NOTED DEEP TRACHEAL USCTION FOR SMALL THIN YELLOW SECRETIONS AIRWAY PATENT
--- NOTE | 2019-01-10 22:35 | NUR ---
PT CLEANSED AND CHANGED. REPOSITIONED FOR COMFORT. PT KEPT CLEAN, DRY AND COMFORTABLE. ASPIRATION AND SAFETY PRECAUTION IN PLACE.
[2019-01-10] MEDS: ALBUTEROL SULFATE/IPRATROPIU 3 ML SOL IH PRN (23:52)
--- NOTE | 2019-01-10 23:52 | NUR ---
AWAKE PATIENT PRESENTING WITH INCREASED SOB AND LABORED DEEP TRACHEAL SUCTION FOR COPIOUS THICK YELLOW SECRETIONS PATENT AIRWAY HHN THERAY AND RESPIRATORY DRUG GIVEN AT THIS TIME Addendum: 01/11/19 at 0012 by Ever Perez RT THERAY = THERAPY
[2019-01-11] VITALS (7 sets, daily range): BP systolic 101–115; BP diastolic 42–57
--- NOTE | 2019-01-11 00:35 | NUR ---
DR. POLLARD MADE AWARE OF PT'S PVC ON THE MONITOR. V/S CHECKED BP 105/57, HR 71, RR 22 O2 SAT 96%. NO NEW ORDER AT THIS TIME.
--- NOTE | 2019-01-11 00:45 | NUR ---
PT'S GT FEEDING LEAKING FROM TRACH. HELD FEEDING. DR. POLLARD MADE AWARE. PER DR. POLLARD, HOLD THE FEEDING UNTIL FURTHER ORDER.
--- NOTE | 2019-01-11 01:30 | NUR ---
TRACH DRESSING CHANGED BY RT. NO RESP DISTRESS NOTED.
--- NOTE | 2019-01-11 01:32 | NUR ---
AWAKE AND ALERT "WATCHING TELEVISION" DEEP TRACHEAL SUCTION FOR MODERATE THIN BELLA SECRETIONS AIRWAY PATENT Addendum: 01/11/19 at 0157 by Ever Perez RT SMALL THICK BELLA TO HAZY SECRETIONS EXUDATING STOMA SITE
--- NOTE | 2019-01-11 03:25 | NUR ---
PT ASLEEP. NO S/S OF RESP DISTRESS. NO S/S OF PAIN OR DISCOMFORT. SAFETY PRECAUTION IN PLACE. CALL LIGHT WITHIN REACH.
[2019-01-11] MEDS: ALBUTEROL SULFATE/IPRATROPIU 3 ML SOL IH PRN (03:46)
[2019-01-11] MEDS: CLINDAMYCIN PHOS 600MG/D5W PM 50 ML IV SCH ×3 (05:22→20:10)
[2019-01-11] MEDS: METOCLOPRAMIDE 10 MG/10 ML SYRP UDC GT SCH ×3 (05:22→17:07)
--- NOTE | 2019-01-11 05:36 | NUR ---
GOOD CHEST RISE DEEP TRACHEAL SUCTION FOR LARGE THIN BELLA SECRETIONS AIRWAY PATENT Addendum: 01/11/19 at 6948 by Ever OMALLEY SATURATION 90% ON FIO2 OF 40% INCREASED FIO2 TO 45%
--- NOTE | 2019-01-11 06:00 | NUR ---
PT WATCHING TV. RESP EVEN AND UNLABORED. CHECKED GT RESIDUAL 5 ML. DUE MEDS GIVEN. PT TOLERATED WELL.
[2019-01-11] MEDS: ALBUTEROL SULFATE/IPRATROPIU 3 ML SOL IH SCH ×3 (07:05→20:16)
--- NOTE | 2019-01-11 07:15 | NUR ---
ENDORSED PT TO DAY SHIFT NURSE. PT IN STABLE CONDITION.
--- NOTE | 2019-01-11 07:17 | NUR ---
RECEIVED REPORT FROM CABLE TELEVISION TECHNICIAN NURSE. APHASIC. TRACH TO VENT. ABLE TO MAKE NEEDS KNOWN BY MOUTHING WORDS AND USE OF PAPER AND PEN. NO C/O PAIN OR SOB. SKIN INTACT. PICC LINE DOUBLE LUMEN TO RIGHT UPPER ARM, PATENT AND INTACT. G-TUBE IN PLACE, FEEDINGS WITHHELD. PER CABLE TELEVISION TECHNICIAN RN, FEEDING FORMULA NOTED AT TRACH, WAS NOTIFIED, AND RECEIVED ORDER TO HOLD FEEDINGS. PER CABLE TELEVISION TECHNICIAN RN, CONTINUE TO HOLD TUBE FEEDINGS UNTIL NEW ORDER RECEIVED TO RESTART TUBE FEEDINGS. ALL SAFETY PRECAUTION IN PLACE. CALL LIGHT WITHIN REACH.
[2019-01-11 07:43] LABS: ANION GAP 7.4 (8-16); CARBON DIOXIDE 31.2 mmol/L (21-32); CHLORIDE 99 mmol/L (98-107); CREATININE 1.5 mg/dL (0.7-1.3); GLUCOSE 125 mg/dL (74-106); POTASSIUM 3.6 mmol/L (3.5-5.1); SODIUM SERUM 134 mmol/L (136-145); UREA NITROGEN, BLOOD 24 mg/dL (7-18)
[2019-01-11] MEDS ORDERED: FERROUS GLUCONATE 324 MG TAB GT SCH (08:00)
[2019-01-11] MEDS: FAMOTIDINE 20 MG/2 ML VIAL IVP SCH (08:26)
[2019-01-11] MEDS: DOCUSATE 100 MG/10 ML UDC GT SCH (08:27)
[2019-01-11] MEDS: POLYETHYLENE GLYCOL 17 GM/PKT GT SCH (08:27)
[2019-01-11] MEDS: SIMETHICONE 40 MG/0.6 ML GT SCH ×3 (08:27→17:07)
[2019-01-11] MEDS: CARVEDILOL 12.5 MG TAB PO SCH ×2 (08:28→20:07)
[2019-01-11] MEDS: LACTOBACILLUS RHAMNOSUS GG 1 EACH CAP PO SCH (08:28)
[2019-01-11] MEDS: NACL 0.9% 500 ML IV SCH (08:29)
--- NOTE | 2019-01-11 08:40 | NUR ---
GASTRIC RESIDUAL LESS THAN 10 ML.
[2019-01-11] MEDS: Z-GUARD PASTE TP SCH (08:45)
[2019-01-11 09:45] LABS: BASOPHILS % (AUTO) 0.1 % (0.0-2.0); EOSINOPHILS # (AUTO) 0.1 K/uL (0-0.4); EOSINOPHILS % (AUTO) 0.9 % (0.0-4.0); HEMOGLOBIN 7.7 g/dL (12.0-18.0); LYMPHOCYTES # (AUTO) 0.5 K/uL (2.0-11.5); LYMPHOCYTES % (AUTO) 3.6 % (20.5-51.1); MEAN CORPUSCULAR HEMOGLOBIN 32 pg (27-31); MEAN CORPUSCULAR HGB CONC 34 g/dL (33-37); MEAN CORPUSCULAR VOLUME 93.7 fL (80-94); MONOCYTES # (AUTO) 1.6 K/uL (0.8-1.0); MONOCYTES % (AUTO) 11.6 % (1.7-9.3); NEUTROPHILS # (AUTO) 11.5 K/uL (1.8-7.7); NEUTROPHILS % (AUTO) 83.8 % (42.2-75.2); PLATELET COUNT (AUTO) 382 K/uL (140-450); RED BLOOD CELL COUNT(AUTO) 2.46 MIL/uL (4.20-6.10); WHITE BLOOD COUNT (AUTO) 13.7 K/uL (4.8-10.8)
[2019-01-11] MEDS: SODIUM FERRIC GLUCONATE 125 MG in NACL 0.9% 100 ML IV SCH (11:16)
--- NOTE | 2019-01-11 11:20 | NUR ---
SCHEDULED MEDICATIONS ADMINISTERED. PT RESTING IN BED. OBEYS COMMANDS AND ABLE TO MAKE NEEDS KNOWN. ALL SAFETY PRECAUTIONS IN PLACE, WILL CONTINUE TO MONITOR.
[2019-01-11] MEDS: LEVOFLOXACIN 750 MG/D5W PREMIX 150 ML IV SCH (13:55)
--- NOTE | 2019-01-11 15:30 | NUR ---
PATIENT RESTING IN BED, EYES OPEN. NO C/O PAIN OR DISCOMFORT. WILL CONTINUE TO MONITOR.
--- NOTE | 2019-01-11 16:11 | NUR ---
ASKED DR. FRANCO IF TUBE FEEDING SHOULD/CAN BE RESTARTED. NO FURTHER LEAKAGE NOTED FROM TRACH SITE. PER DR. FRANCO, START TUBE FEEDING AT 10 ML/HR AND MONITOR FOR TOLERANCE. NO ORDERS TO ADVANCE FEEDING FOR NOW. Addendum: 01/11/19 at 1613 by Catalina Cardoso Meng, RN NO FURTHER LEAKAGE NOTED FROM TRACH SITE IN MY SHIFT.
--- NOTE | 2019-01-11 16:27 | NUR ---
LEFT MESSAGE FOR FNS TO BRING TUBE FEEDING FORMULA TO FLOOR.
--- NOTE | 2019-01-11 17:00 | NUR ---
TUBE FEEDING STARTED AT 10 ML/HR PER DR. FRANCO ORDERS. 100 ML FWF Q4H. WILL MONITOR FOR INTOLERANCE.
--- NOTE | 2019-01-11 19:20 | NUR ---
ENDORSED POC TO FIRST ASSISTANT RN. PT IN STABLE CONDITION.
--- NOTE | 2019-01-11 19:21 | NUR ---
RECEIVED BEDSIDE REPORT FROM DAY SHIFT NURSEPETER. ON TRACH TO VENT. ABLE TO MAKE NEEDS KNOWN BY SAYING YES OR NO AND USE OF MARKER AND BOARD. NO C/O PAIN OR SOB. SKIN INTACT. PICC LINE DOUBLE LUMEN TO RIGHT UPPER ARM, PATENT, ASYMPTOMATIC AND INTACT. G-TUBE IN PLACE, FEEDINGS AT 10 ML/HR. BED IN LOW POSITION. CALL LIGHT WITHIN REACH. WILL CONTINUE TO MONITOR.
[2019-01-11] MEDS: SENNA 8.6 MG TAB GT SCH (20:07)
[2019-01-11] MEDS: MIRTAZAPINE 15 MG TAB GT SCH (20:07)
--- NOTE | 2019-01-11 20:12 | NUR ---
FEEDING FORMULA NOTED AT TRACH, REPORTED TO DR. LAMB, AND RECEIVED ORDER TO HOLD FEEDINGS. WILL CONTINUE TO HOLD TUBE FEEDINGS UNTIL NEW ORDER RECEIVED TO RESTART TUBE FEEDINGS. WILL CONTINUE TO MONITOR.
[2019-01-11] MEDS: OLANZapine 2.5 MG TAB GT SCH (20:14)
--- NOTE | 2019-01-11 20:16 | NUR ---
RECEIVED PT ON DOCUMENTED SETTINGS AIRWAY SECURE AND PATENT. ALARMS SET AND AUDIBLE. BVM AT BEDSIDE.NO DISTRESS NOTED AT THIS TIME. VENTILATOR PLUGGED INTO RED OUTLETS
--- NOTE | 2019-01-11 20:23 | NUR ---
DUE MEDICATION ADMINISTERED, PT TOLERATED WELL, NO DISTRESS NOTED, CALL LIGHT WITHIN REACH, WILL CONTINUE TO MONITOR.
[2019-01-12] VITALS: BP 100/43
[2019-01-12] MEDS: METOCLOPRAMIDE 10 MG/10 ML SYRP UDC GT SCH ×2 (00:11→05:45)
--- NOTE | 2019-01-12 00:11 | NUR ---
CHECKED ON PT, PT SLEEPING, V/S TAKEN, WITHIN PT BASELINE, CALL LIGHT WITHIN REACH, WILL CONTINUE TO MONITOR.
[2019-01-12 04:00] VITALS: BP 121/46
[2019-01-12] MEDS: CLINDAMYCIN PHOS 600MG/D5W PM 50 ML IV SCH ×3 (04:33→21:30)
--- NOTE | 2019-01-12 04:33 | NUR ---
DUE MEDICATION ADMINISTERED, PT TOLERATED WELL, V/S TAKEN, WITHIN PT BASELINE, CALL LIGHT WITHIN REACH, WILL CONTINUE TO MONITOR.
--- NOTE | 2019-01-12 07:24 | NUR ---
ENDORSED PT TO DAY SHIFT NURSE ROC RN, PT STABLE, NO DISTRESS NOTED, CALL LIGHT WITHIN REACH.
--- NOTE | 2019-01-12 07:25 | NUR ---
RECEIVED PT REPORT FROM PROCESS ENGINEERING MANAGER NURSE. PT IS AWAKE AND ALERT IN BED, NO S/S OF ACUTE DISTRESS OR SOB NOTED, NO C/O PAIN. PT IS TRACH TO VENT. CURRENT SETTINGS: FIO2 40%, VT 500, PEEP 5, RR 16, FLOW RATE 50 L/MIN. PICC LINE NOTED ON THE RUE, INFUSING NS 10 ML/HR TKO. SKIN IS INTACT ASIDE FROM SACRAL REDNESS, COVERED WITH A FOAM DRESSING. FALL PRECAUTIONS ARE IN PLACE, CALL LIGHT WITHIN REACH. WILL CONTINUE TO MONITOR.
[2019-01-12] MEDS: ALBUTEROL SULFATE/IPRATROPIU 3 ML SOL IH SCH ×3 (07:40→19:13)
--- NOTE | 2019-01-12 07:40 | NUR ---
RECEIVED ON A [employer] CARESCAPE R860 VENTILATOR PLUGGED INTO RED OUTLET TOLERATING WELL WITHOUT INCIDENT TO A SHILEY XLT #8 AIRWAY SECURED WITH A COSMO TRACH TIE CUFF PRESSURE CHECKED NOTED BRIANNA RADICAL-7 CONTINUOS PULSE OXIMETER AT BEDSIDE ON AND FUNCTIONING WELL LOW SATURATION ALARM SET AT 90% AMBU BAG NOTED AT HOB LOC AWAKE AND ALERT "MOUTHING WORDS" BREATH SOUNDS COARSE RHONCHI AND WHEEZE BILATERAL WITH GOOD CHEST RISE DEEP TRACHEAL SUCTION FOR MODERATE SEMI THICK TO THIN BELLA SECRETIONS AIRWAY PATENT
[2019-01-12 08:00] VITALS: BP 108/42
[2019-01-12 08:44] LABS: ANION GAP 11.8 (8-16); CARBON DIOXIDE 28.4 mmol/L (21-32); CHLORIDE 98 mmol/L (98-107); CREATININE 1.6 mg/dL (0.7-1.3); GLUCOSE 88 mg/dL (74-106); POTASSIUM 3.2 mmol/L (3.5-5.1); SODIUM SERUM 135 mmol/L (136-145); UREA NITROGEN, BLOOD 27 mg/dL (7-18)
[2019-01-12 08:46] LABS: PHOSPHORUS 4.3 mg/dL (2.5-4.9)
[2019-01-12 09:02] LABS: BASOPHILS % (AUTO) 0.2 % (0.0-2.0); EOSINOPHILS # (AUTO) 0.2 K/uL (0-0.4); EOSINOPHILS % (AUTO) 0.9 % (0.0-4.0); HEMATOCRIT 22.7 % (36-52); HEMOGLOBIN 7.7 g/dL (12.0-18.0); LYMPHOCYTES # (AUTO) 0.4 K/uL (2.0-11.5); LYMPHOCYTES % (AUTO) 2.3 % (20.5-51.1); MEAN CORPUSCULAR HEMOGLOBIN 32 pg (27-31); MEAN CORPUSCULAR HGB CONC 34 g/dL (33-37); MEAN CORPUSCULAR VOLUME 93.9 fL (80-94); MONOCYTES # (AUTO) 1.3 K/uL (0.8-1.0); MONOCYTES % (AUTO) 6.7 % (1.7-9.3); NEUTROPHILS # (AUTO) 16.9 K/uL (1.8-7.7); NEUTROPHILS % (AUTO) 89.9 % (42.2-75.2); PLATELET COUNT (AUTO) 385 K/uL (140-450); RED BLOOD CELL COUNT(AUTO) 2.42 MIL/uL (4.20-6.10); RED CELL DISTRIBUTION WIDTH 16.7 % (11.6-13.7); WHITE BLOOD COUNT (AUTO) 18.8 K/uL (4.8-10.8)
[2019-01-12 09:10] LABS: MAGNESIUM 2.5 mg/dL (1.8-2.4)
[2019-01-12] MEDS: POLYETHYLENE GLYCOL 17 GM/PKT GT SCH ×2 (09:42→16:41)
[2019-01-12] MEDS: DOCUSATE 100 MG/10 ML UDC GT SCH (09:42)
[2019-01-12] MEDS: CARVEDILOL 12.5 MG TAB PO SCH ×2 (09:43→21:44)
[2019-01-12] MEDS: LACTOBACILLUS RHAMNOSUS GG 1 EACH CAP PO SCH (09:43)
[2019-01-12] MEDS: SIMETHICONE 40 MG/0.6 ML GT SCH ×3 (09:44→16:41)
[2019-01-12] MEDS: FAMOTIDINE 20 MG/2 ML VIAL IVP SCH (09:44)
[2019-01-12] MEDS: Z-GUARD PASTE TP SCH (09:45)
[2019-01-12] MEDS: NACL 0.9% 500 ML IV SCH (09:46)
[2019-01-12] MEDS: ALBUTEROL SULFATE/IPRATROPIU 3 ML SOL IH PRN (09:55)
--- NOTE | 2019-01-12 10:19 | NUR ---
SCHEDULED AM MEDS ADMINISTERED, PT STARTED COUGHING AFTER THE ADMINISTRATION OF GT MEDS, AND A MODERATE AMOUNT OF MUCOUSY FLUID CAME OUT OF HIS TRACH. MD IS AWARE OF PT'S TRACH LEAKING. WILL CONTINUE TO MONITOR.
[2019-01-12] MEDS: SODIUM FERRIC GLUCONATE 125 MG in NACL 0.9% 100 ML IV SCH (11:00)
[2019-01-12 12:00] VITALS: BP 97/56
[2019-01-12] MEDS ORDERED: POTASSIUM CHLORIDE 40 MEQ, LIDOCAINE MPF 1% - 5 mL VIAL 25 MG in NACL 0.9% 250 ML IV SCH (12:00)
--- NOTE | 2019-01-12 12:10 | NUR ---
PT SEEN BY DR KATZ REGARDING LEAKING TRACH
[2019-01-12] MEDS ORDERED: METOCLOPRAMIDE 10 MG/2 ML INJ VIAL IVP SCH ×2 (12:27→18:00)
[2019-01-12] MEDS ORDERED: LACTULOSE 20 GM/30 ML UDC PO SCH (13:33)
[2019-01-12] MEDS: DEXT 5% /NACL 0.9% 1,000 ML IV SCH (13:38)
--- NOTE | 2019-01-12 13:41 | NUR ---
BREATHING TX ADMINISTERED. PT AWAKE IN BED WATCHING TV NOT IN ANY DISTRESS. VENT ALARMS ON AND FUNCTIONING. TRACH SECURE WITH A PATENT AIRWAY.
[2019-01-12] MEDS: LEVOFLOXACIN 750 MG/D5W PREMIX 150 ML IV SCH (15:52)
--- NOTE | 2019-01-12 15:55 | NUR ---
PT CLEANED AND REPOSITIONED, LINENS CHANGED. PT HAD A SMALL BM SMEAR AND PASSED GAS DURING THE CHANGING/REPOSITIONING PROCESS. Addendum: 01/12/19 at 1707 by Verna Blas RN NEW SACRAL DRESSING APPLIED. THE SACRAL REDNESS IS BLANCHEABLE.
[2019-01-12 16:00] VITALS: BP 105/47
--- NOTE | 2019-01-12 16:08 | NUR ---
STABLE GOOD CHEST RISE NO SUCTIONING AT THIS TIME DIE CUT OPERATOR TO MONITOR
--- NOTE | 2019-01-12 17:47 | NUR ---
STABLE NO EVIDENCE OF PULMONARY DISTRESS NOTED GOOD CHEST RISE DEEP TRACHEAL SUCTION FOR MODERATE THIN YELLOW SECRETIONS AIRWAY PATENT
--- NOTE | 2019-01-12 18:00 | NUR ---
PT HAD A LARGE LIQUID BLACK BM. DR FRANCO NOTIFIED.
--- NOTE | 2019-01-12 19:10 | NUR ---
PT ENDORSED TO CHEF PASSENGER VESSEL IN STABLE CONDITION.
--- NOTE | 2019-01-12 19:11 | NUR ---
RECEIVED BEDSIDE REPORT FROM DAY SHIFT NURSE ROC RN, PT STABLE, NO DISTRESS NOTED, CENTRAL LINE TO R UPPER ARM, DOUBLE LUMEN, ONE LUMEN NOT FLUSHING, PT ON TRACH TO VENT, NO SOB NOTED, INITIAL ASSESSMENT DONE, ALL SAFETY PRECAUTION MET, CALL LIGHT WITHIN REACH, WILL CONTINUE TO MONITOR.
[2019-01-12 20:00] VITALS: BP 117/41
[2019-01-12] MEDS: METOCLOPRAMIDE 10 MG/2 ML INJ VIAL IVP SCH (21:28)
[2019-01-12] MEDS: LACTULOSE 20 GM/30 ML UDC PO SCH (21:28)
[2019-01-12] MEDS: SENNA 8.6 MG TAB GT SCH (21:29)
[2019-01-12] MEDS: MIRTAZAPINE 15 MG TAB GT SCH (21:30)
[2019-01-12] MEDS: OLANZapine 2.5 MG TAB GT SCH (21:40)
--- NOTE | 2019-01-12 21:44 | NUR ---
DUE MEDICATION ADMINISTERED, PT TOLERATED WELL, NO DISTRESS NOTED, CALL LIGHT WITHIN REACH, WILL CONTINUE TO MONITOR.
[2019-01-13] VITALS: BP 113/49
--- NOTE | 2019-01-13 00:10 | NUR ---
CHECKED ON PT, V/S TAKEN, WITHIN PT BASELINE, PT RESTING, NO DISTRESS NOTED, CALL LIGHT WITHIN REACH, WILL CONTINUE TO MONITOR.
--- NOTE | 2019-01-13 02:20 | NUR ---
PT RESTING, NO DISTRESS NOTED, CALL LIGHT WITHIN REACH, WILL CONTINUE TO MONITOR.
[2019-01-13 04:00] VITALS: BP 107/43
[2019-01-13] MEDS: CLINDAMYCIN PHOS 600MG/D5W PM 50 ML IV SCH ×3 (04:33→20:45)
[2019-01-13] MEDS: METOCLOPRAMIDE 10 MG/2 ML INJ VIAL IVP SCH ×3 (04:34→20:46)
[2019-01-13] MEDS: DEXT 5% /NACL 0.9% 1,000 ML IV SCH (04:35)
--- NOTE | 2019-01-13 04:35 | NUR ---
DUE MEDICATION ADMINISTERED, V/S TAKEN, WITHIN PT BASELINE, PT TOLERATED WELL, NO DISTRESS NOTED, CALL LIGHT WITHIN REACH, WILL CONTINUE TO MONITOR
--- NOTE | 2019-01-13 07:27 | NUR ---
ENDORSED PT TO DAY SHIFT NURSE LUCAS RN, PT STABLE, NO DISTRESS NOTED, CALL LIGHT WITHIN REACH.
--- NOTE | 2019-01-13 07:30 | NUR ---
PATIENT WAS AWAKE, ALERT. RESPIRATION EVEN, UNLABOR ON VENT AC/AC, FIO2 40%. SKIN DRY AND WARM. PICC LINE PATENT AND INTACT. DENIED PAIN AT THIS TIME. PATIENT HAD A BM AND WAS GIVEN PERINEAL CARE, AND REPOSITIONED TO RIGHT LATERAL. GTUBE SITE WAS CLEAN AND DRY. TUBE FEEDING WAS HELD AT THIS TIME. PLAN OF CARE WAS DISCUSSED WITH PATIENT. BED AT LOW POSITION, SIDE RAILS UP. CALL LIGHT WITHIN REACH
[2019-01-13] MEDS: ALBUTEROL SULFATE/IPRATROPIU 3 ML SOL IH SCH ×3 (07:55→19:25)
[2019-01-13 08:00] VITALS: BP 117/32
[2019-01-13] MEDS ORDERED: FERROUS GLUCONATE 324 MG TAB GT SCH (08:00)
[2019-01-13 08:01] LABS: BASOPHILS % (AUTO) 0.1 % (0.0-2.0); EOSINOPHILS # (AUTO) 0.2 K/uL (0-0.4); EOSINOPHILS % (AUTO) 1.3 % (0.0-4.0); HEMATOCRIT 21.7 % (36-52); HEMOGLOBIN 7.2 g/dL (12.0-18.0); LYMPHOCYTES # (AUTO) 0.6 K/uL (2.0-11.5); LYMPHOCYTES % (AUTO) 4.4 % (20.5-51.1); MEAN CORPUSCULAR HEMOGLOBIN 31 pg (27-31); MEAN CORPUSCULAR HGB CONC 33 g/dL (33-37); MEAN CORPUSCULAR VOLUME 94.2 fL (80-94); MONOCYTES # (AUTO) 1.2 K/uL (0.8-1.0); MONOCYTES % (AUTO) 8.4 % (1.7-9.3); NEUTROPHILS # (AUTO) 11.9 K/uL (1.8-7.7); NEUTROPHILS % (AUTO) 85.8 % (42.2-75.2); PLATELET COUNT (AUTO) 352 K/uL (140-450); RED BLOOD CELL COUNT(AUTO) 2.31 MIL/uL (4.20-6.10); RED CELL DISTRIBUTION WIDTH 16.9 % (11.6-13.7); WHITE BLOOD COUNT (AUTO) 13.8 K/uL (4.8-10.8)
[2019-01-13 08:07] LABS: CHLORIDE 103 mmol/L (98-107); CREATININE 1.7 mg/dL (0.7-1.3); GLUCOSE 94 mg/dL (74-106); SODIUM SERUM 140 mmol/L (136-145); UREA NITROGEN, BLOOD 26 mg/dL (7-18)
[2019-01-13 08:10] LABS: MAGNESIUM 2.6 mg/dL (1.8-2.4); PHOSPHORUS 4.1 mg/dL (2.5-4.9)
[2019-01-13] MEDS: LACTOBACILLUS RHAMNOSUS GG 1 EACH CAP PO SCH (08:42)
[2019-01-13] MEDS: FERROUS SULFATE 300 MG/5 ML UDC GT SCH (08:42)
[2019-01-13] MEDS: POTASSIUM CHLORIDE 20% 40 MEQ/15 ML UDC GT SCH (08:42)
[2019-01-13] MEDS: FAMOTIDINE 20 MG/2 ML VIAL IVP SCH (08:43)
[2019-01-13] MEDS: LACTULOSE 20 GM/30 ML UDC PO SCH (08:43)
[2019-01-13] MEDS: SIMETHICONE 40 MG/0.6 ML GT SCH (08:43)
[2019-01-13] MEDS: DOCUSATE 100 MG/10 ML UDC GT SCH (08:43)
[2019-01-13] MEDS: POLYETHYLENE GLYCOL 17 GM/PKT GT SCH (08:44)
[2019-01-13] MEDS: MAGNESIUM CITRATE 300 ML BTL GT SCH (08:45)
[2019-01-13] MEDS: CARVEDILOL 12.5 MG TAB PO SCH ×2 (08:47→21:00)
[2019-01-13] MEDS: SODIUM FERRIC GLUCONATE 125 MG in NACL 0.9% 100 ML IV SCH (09:06)
[2019-01-13] MEDS: Z-GUARD PASTE TP SCH (09:35)
--- NOTE | 2019-01-13 09:35 | NUR ---
PATIENT WAS SUCTIONED X2, ORAL CARE WAS GIVEN. PATIENT TOLERATED WELL
--- NOTE | 2019-01-13 09:36 | NUR ---
RECEIVED ON A [employer] CARESCAPE R860 VENTILATOR PLUGGED INTO RED OUTLET TOLERATING WELL WITHOUT INCIDENT TO A SHILEY XLT #8AIRWAY SECURED WITH A COSMO TRACH TIE CUFF PRESSURE CHECKED NOTED ADELINEO RADICAL-7 CONTINUOS PULSE OXIMETER AT BEDSIDEW SATURATION ALARM SET AT 90% LOC AWAKE AND ALERT "MOUTHING WORDS" GOOD CHEST RISE NO RETURN ON SUCTIONING NO PRN HHN THERAPY GIVEN AT THIS TIME [employer] INSTALLER TO MONITOR AIRWAY PATENT
--- NOTE | 2019-01-13 10:29 | NUR ---
PATIENT REQUESTED TO BE SUCTIONED. SUCTION CATHETER WAS NOT ABLE TO PASS COMPLETELY. SUCTIONED OUT BLOODY SPUTUM. RT WAS NOTIFIED. DR. WARNER WAS MADE AWARE. PATIENT DENIED SOB, VS IS STABLE AT THIS TIME
--- NOTE | 2019-01-13 11:02 | NUR ---
PATIENT HAD A BM, LIQUID, LARGE AMOUNT. PERINEAL CARE WAS GIVEN. PATIENT WAS REPOSITIONED TO LEFT LATERAL. PATIENT TOLERATED WELL.
[2019-01-13 12:00] VITALS: BP 118/49
[2019-01-13] MEDS ORDERED: POTASSIUM CHLORIDE 20% 40 MEQ/15 ML UDC GT SCH (12:00)
--- NOTE | 2019-01-13 12:26 | NUR ---
GTUBE RESIDUAL WAS 0. FEEDING WAS RESUMED AT 20ML/ HOUR PER ORDER. MEDS WERE GIVEN. PATIENT TOLERATED WELL
--- NOTE | 2019-01-13 13:50 | NUR ---
PATIENT WAS SLEEPING COMFORTABLY. RESPIRATION EVEN, UNLABOR ON VENT. NO DISTRESS NOTED AT THIS TIME
--- NOTE | 2019-01-13 13:52 | NUR ---
STABLE GOOD CHEST RISE NO SUCTIONING AT THIS TIME DIE MAKER TRIM TO MONITOR RN AND [facility] AND [facility]POSITION
[2019-01-13] MEDS: LEVOFLOXACIN 750 MG/D5W PREMIX 150 ML IV SCH (14:13)
[2019-01-13] MEDS ORDERED: MORPHINE SULFATE 2 MG/ML SYR IVP PRN (14:15)
[2019-01-13] MEDS ORDERED: HYDROcodone/APAP 7.5/325 MG 1 TAB PO PRN (14:15)
--- NOTE | 2019-01-13 14:40 | NUR ---
PATIENT WAS MOUTHING HE FEELS SOMETHING IS POKING THROUGH HIS THROAT. TRACH DRESSING WAS SOAKED WITH SPUTUM. PATIENT WAS SUCTIONED. RT WAS NOTIFIED.
--- NOTE | 2019-01-13 15:43 | NUR ---
01/13/19 RD FOLLOW UP COMPLETED PLEASE REFER TO NUTRITION ASSESSMENT UNDER CARE ACTIVITY FOR ESTIMATED NUTRITIONAL NEEDS. 1. CONTINUE JEVITY 1.2 AT 60 ML/HR MEDICALLY NECESSARY -THIS WILL PROVIDE A VOLUME OF 1440 ML, 1728 KCAL, AND 80 GM PRO. IT MEETS 100% OF PT ENERGY NEEDS AND 88% OF PROTEIN NEED. 2. IF LEAKING STILL OCCURS CONSIDER DECREASING INFUSION RATE TO 10 ML/HR BUT IF LEAKING PERSISTS CONSIDER NPO AND TPN UNTIL ISSUE IS RESOLVED 3. RD TO FOLLOW-UP 2-3 DAYS, HIGH RISK PAM VAIL RD
[2019-01-13 16:00] VITALS: BP 105/42
--- NOTE | 2019-01-13 16:05 | NUR ---
PATIENT WAS AWAKE, ALERT. RESPIRATION EVEN, UNLABOR ON VENT. DENIED PAIN AT THIS TIME. CALL LIGHT WITHIN REACH
--- NOTE | 2019-01-13 17:10 | NUR ---
FEEDING RESIDUAL WAS CHECKED AT 0. NO LEAKAGE AROUND THE TRACH SITE. PATIENT TOLERATED FEEDING WELL. FEEDING RATE WAS INCREASED TO 30 ML/HR, WILL CONTINUE TO MONITOR
--- NOTE | 2019-01-13 17:27 | NUR ---
VENT CHECK COMPLETED PT REMAINS ON DOCUMENTED VENT SETTINGS. TRACH REMAINS SECURE WITH A PATENT AIRWAY. VENT ALARMS ON AND FUNCTIONING. PT AWAKE IN BED WATCHING TV NOT IN ANY DISTRESS.
--- NOTE | 2019-01-13 18:47 | NUR ---
PATIENT REQUESTED TO BE SUCTIONED. PATIENT WAS SUCTIONED X 2 WITH SMALL AMOUNT OF SPUTUM. LUNGS WERE WHEEZING UPON AUSCULTATION. RT WAS NOTIFIED FOR BREATHING TREATMENT.
--- NOTE | 2019-01-13 19:24 | NUR ---
REPORT WAS GIVEN TO FORMULATION SCIENTIST RN. PATIENT WAS STABLE AT THIS TIME
--- NOTE | 2019-01-13 19:30 | NUR ---
RECEIVED BEDSIDE REPORT FROM DAY SHIFT NURSE. PATIENT IS AWAKE, ALERT, AND COOPERATIVE. RESPIRATION EVEN UNLABORED ON TRACH TO VENT. NO DISTRESS NOTED. SKIN IS WARM AND DRY. PICC LINE NOTED ON THE RUE. REDNESS TO SACRAL AREA NOTED AND COVERED WITH A FOAM DRESSING. G-TUBE FEEDING NOTED. PLAN OF CARE WAS DISCUSSED AND ABLE TO MAKE NEEDS KNOWN. ALL SAFETY MEASURES IN PLACE. BED IS AT LOW POSITION. CALL LIGHT WITHIN REACH. WILL CONTINUE TO MONITOR.
[2019-01-13 20:00] VITALS: BP 119/49
--- NOTE | 2019-01-13 20:00 | NUR ---
INITIAL ASSESSMENT DONE. VITALS WERE TAKEN. PATIENT CONDITION STABLE. NO DISTRESS NOTED. WILL CONTINUE TO MONITOR.
[2019-01-13] MEDS: MIRTAZAPINE 15 MG TAB GT SCH (20:45)
[2019-01-13] MEDS: OLANZapine 2.5 MG TAB GT SCH (20:45)
--- NOTE | 2019-01-13 21:00 | NUR ---
ALL SCHEDULE MEDS WERE GIVEN PER ORDER. COREG HELD DUE TO PATIENT LOW HEART RATE 54. WILL CONTINUE TO MONITOR.
[2019-01-13] MEDS ORDERED: ALBUTEROL SULFATE/IPRATROPIU 3 ML SOL IH PRN (21:20)
--- NOTE | 2019-01-13 22:00 | NUR ---
SUCTIONED PATIENT AND OBTAINED SMALL AMOUNT OF SECRETION. NO DISTRESS NOTED. WILL CONTINUE TO MONITOR
--- NOTE | 2019-01-13 23:00 | NUR ---
PATIENT SLEEPING RESPIRATION EVEN UNLABORED ON TRACH TO VENT. NO DISTRESS NOTED. WILL CONTINUE TO MONITOR.
--- NOTE | 2019-01-13 23:25 | NUR ---
PT SXNED . PT CONTINUES TO HAVE HIGH PEAK PRESSURES
[2019-01-14] VITALS: BP 115/45
--- NOTE | 2019-01-14 | NUR ---
VITALS WERE TAKEN. PATIENT CONDITION STABLE. NO DISTRESS NOTED. WILL CONTINUE TO MONITOR.
--- NOTE | 2019-01-14 02:00 | NUR ---
SUCTIONED PATIENT OBTAINED SMALL AMOUNT OF SECRETION. WILL CONTINUE TO MONITOR.
[2019-01-14 04:00] VITALS: BP 114/48
--- NOTE | 2019-01-14 04:00 | NUR ---
VITALS WERE TAKEN. PATIENT CONDITION STABLE. NO DISTRESS NOTED. WILL CONTINUE TO MONITOR.
[2019-01-14] MEDS: METOCLOPRAMIDE 10 MG/2 ML INJ VIAL IVP SCH ×2 (04:45→12:20)
[2019-01-14] MEDS: CLINDAMYCIN PHOS 600MG/D5W PM 50 ML IV SCH ×3 (04:45→20:32)
[2019-01-14] MEDS: DEXT 5% /NACL 0.9% 1,000 ML IV SCH (04:47)
[2019-01-14] MEDS: ALBUTEROL SULFATE/IPRATROPIU 3 ML SOL IH SCH ×3 (06:40→18:49)
[2019-01-14] MEDS ORDERED: ALBUTEROL SULFATE/IPRATROPIU 3 ML SOL IH SCH (07:00)
--- NOTE | 2019-01-14 07:00 | NUR ---
RCVD PT ON CARESCAPE VENT WITH SETTINGS OF AC :14,VT:450, +5, [id number]%, PT WEARING A SHILEY 8XLT. ALARMS ON & AUDIBLE AND AMBU BAG AT SIDE OF BED AND VENT IS PLUGGED INTO RED OUTLET. TX I\L WITH DUONEB 3ML, PT EFREN TX WELL. BREATH SOUNDS WERE COURSE, SUCTIONED PT & SMALL AMOUNT OF THIN CLEAR SECRETIONS WERE SUCTIONED.
--- NOTE | 2019-01-14 07:24 | NUR ---
ENDORSED PATIENT TO DAY SHIFT NURSE FOR CONTINUITY OF CARE. PATIENT CONDITION STABLE
--- NOTE | 2019-01-14 07:25 | NUR ---
GOT BEDSIDE REPORT FROM PAUL MONTELONGO. PATIENT ON TELE MONITOR AND ON TRACH TO VENT, SPO2 MONITOR IN PLACE. SETTINGS FOLLOWS: FIO2 40%, VT 500 ML, RATE 15/MIN, FLOW 50 L/MIN, PEEP 5. SKIN INTACT, EXCEPT FOR SACRAL REDNESS. RUE PICC LINE IN PLACE, ASYMPTOMATIC PATENT AND INTACT. PATIENT WITH G TUBE IN PLACE, HEARD SWOOSH WHEN AUSCULTATED AND 5 ML OF GASTRIC RESIDUAL. PATIENT UNABLE TO AMBULATE AND INCONTINENT. FALL RISK PROTOCOL IN PLACE. BED IN LOW POSITION, CALL LIGHT WITHIN REACH, SIDE RAILS X2 UP
[2019-01-14] MEDS ORDERED: NACL 0.9% 1,000 ML IV SCH (07:35)
[2019-01-14 08:00] VITALS: BP 112/37
[2019-01-14 08:25] LABS: BASOPHILS % (AUTO) 0.3 % (0.0-2.0); EOSINOPHILS # (AUTO) 0.3 K/uL (0-0.4); EOSINOPHILS % (AUTO) 2.3 % (0.0-4.0); HEMATOCRIT 23.9 % (36-52); HEMOGLOBIN 7.8 g/dL (12.0-18.0); LYMPHOCYTES # (AUTO) 0.6 K/uL (2.0-11.5); LYMPHOCYTES % (AUTO) 4.3 % (20.5-51.1); MEAN CORPUSCULAR HEMOGLOBIN 31 pg (27-31); MEAN CORPUSCULAR HGB CONC 33 g/dL (33-37); MEAN CORPUSCULAR VOLUME 95.8 fL (80-94); MONOCYTES % (AUTO) 7.5 % (1.7-9.3); NEUTROPHILS % (AUTO) 85.6 % (42.2-75.2); PLATELET COUNT (AUTO) 369 K/uL (140-450); RED BLOOD CELL COUNT(AUTO) 2.49 MIL/uL (4.20-6.10); RED CELL DISTRIBUTION WIDTH 17.8 % (11.6-13.7)
[2019-01-14 08:32] LABS: CARBON DIOXIDE 24.3 mmol/L (21-32); CHLORIDE 106 mmol/L (98-107); CREATININE 1.6 mg/dL (0.7-1.3); GLUCOSE 119 mg/dL (74-106); POTASSIUM 3.3 mmol/L (3.5-5.1); SODIUM SERUM 140 mmol/L (136-145); UREA NITROGEN, BLOOD 23 mg/dL (7-18)
[2019-01-14 08:58] LABS: MAGNESIUM 2.6 mg/dL (1.8-2.4); PHOSPHORUS 4.4 mg/dL (2.5-4.9)
--- NOTE | 2019-01-14 09:11 | NUR ---
WHEN T-PIECE DRAINED SMALL PIECE OF SKIN-LIKE SUBSTANCE REMOVED
[2019-01-14] MEDS: MAGNESIUM CITRATE 300 ML BTL GT SCH (09:20)
[2019-01-14] MEDS: LACTOBACILLUS RHAMNOSUS GG 1 EACH CAP PO SCH (09:21)
[2019-01-14] MEDS: POTASSIUM CHLORIDE 20% 40 MEQ/15 ML UDC GT SCH (09:21)
[2019-01-14] MEDS: FAMOTIDINE 20 MG/2 ML VIAL IVP SCH (09:22)
[2019-01-14] MEDS: CARVEDILOL 12.5 MG TAB PO SCH ×2 (09:22→21:00)
[2019-01-14] MEDS: LACTULOSE 20 GM/30 ML UDC PO SCH (09:23)
[2019-01-14] MEDS: Z-GUARD PASTE TP SCH (09:24)
[2019-01-14] MEDS: FERROUS SULFATE 300 MG/5 ML UDC GT SCH ×2 (09:24→20:35)
[2019-01-14] MEDS: SODIUM FERRIC GLUCONATE 125 MG in NACL 0.9% 100 ML IV SCH (09:36)
--- NOTE | 2019-01-14 09:53 | NUR ---
ADMINISTERED SCHEDULED MEDS. PATIENT TOLERATED WELL. REPOSITIONED PATIENT WITH ZUHAIR, RAIL TRACTOR OPERATOR AND PATIENT HAD BM
[2019-01-14] MEDS ORDERED: POTASSIUM CHLORIDE 20% 40 MEQ/15 ML UDC GT SCH (10:00)
[2019-01-14 12:00] VITALS: BP 106/54
--- NOTE | 2019-01-14 12:01 | NUR ---
PATIENT WATCHING TV, TRACH TO VENT, NO DISTRESS NOTED
--- NOTE | 2019-01-14 12:51 | NUR ---
PATIENT HAD LARGE BM, CHANGED SOILED LINEN AND TURNED PATIENT TO R SIDE LYING POSITION
[2019-01-14] MEDS ORDERED: FUROSEMIDE 20 MG/2 ML VIAL IVP SCH (14:00)
[2019-01-14] MEDS: LEVOFLOXACIN 750 MG/D5W PREMIX 150 ML IV SCH (14:41)
--- NOTE | 2019-01-14 14:53 | NUR ---
PATIENT HAD BM, CHANGED SOILED LINENS AND TURNED PATIENT TO L SIDE LYING POSITION
[2019-01-14 16:00] VITALS: BP 102/42
[2019-01-14] MEDS: METOCLOPRAMIDE 10 MG/10 ML SYRP UDC GT SCH (16:15)
--- NOTE | 2019-01-14 16:19 | NUR ---
ADMINISTERED SCHEDULED MEDS. PATIENT TOLERATED WELL
--- NOTE | 2019-01-14 16:38 | NUR ---
TURNED PATIENT TO R SIDE LYING POSITION AND PATIENT HAD ANOTHER BM
--- NOTE | 2019-01-14 18:09 | NUR ---
CHANGED SOILED LINENS AND TURNED PATIENT TO L SIDE LYING POSITION. PATIENT HAD ANOTHER BM
--- NOTE | 2019-01-14 19:25 | NUR ---
RECEIVED BEDSIDE REPORT FROM STEVEN MILLER. [facility] FIO[facility] 40% VT 500 RR 16 PEEP 5 PT 97%. PT ON TUBE FEEDING JEVITY 1.2 AT 60ML/H WATER FLUSH 150ML/Q4H. SKIN INTACT SACRAL REDNESS Z GUARD AND OPTIFOAM ON. PER NURSE PT HAD 6BM TODAY. PT IS INCONTINENT. PT REFUSING EGD AND COLONOSCOPY. PT WITH R PICC LINE DOUBLE LUMEN SL. PLAN OF CARE DISCUSSED. SAFETY MEASURES ARE IN PLACE. WILL CONTINUE TO MONITOR.
--- NOTE | 2019-01-14 19:26 | NUR ---
GAVE BEDSIDE REPORT TO PAUL ARIAS. PATIENT ENDORSED IN STABLE CONDITION
[2019-01-14 20:00] VITALS: BP 104/44
--- NOTE | 2019-01-14 20:32 | NUR ---
VITAL SIGNS ARE WITHIN NORMAL LIMITS. ORAL CARE PROVIDED PT TOLERATED WELL. SUCTION THICK WHITE SECRETIONS. PT WITH 5 RESIDUAL. DUE MEDICATIONS GIVE. COREG HELD DUE TO LOW HEART RATE. ALL NEEDS MET AT THIS TIME. CALL LIGHT WITHIN REACH.
[2019-01-14] MEDS: OLANZapine 2.5 MG TAB GT SCH (20:36)
[2019-01-14] MEDS: MIRTAZAPINE 15 MG TAB GT SCH (20:36)
--- NOTE | 2019-01-14 20:45 | NUR ---
PT HAD A LOOSE BM. PT WAS CLEANED AND REPOSITION FOR COMFORT. SUCTION PT. PT TOLERATED WELL. CALL LIGHT WITHIN REACH. SAFETY MEASURES ARE IN PLACE. WILL CONTINUE TO MONITOR.
--- NOTE | 2019-01-14 22:00 | NUR ---
PT IS RESTING COMFORTABLY IN BED. RESPIRATIONS ARE EQUAL AND UNLABORED. CALL LIGHT WITHIN REACH. WILL CONTINUE TO MONITOR.
[2019-01-15] VITALS: BP 107/45
--- NOTE | 2019-01-15 00:15 | NUR ---
VITAL SIGNS ARE WITHIN NORMAL LIMITS. SUCTION PT. THICK WHITE SECRETIONS. PT TOLERATED WELL. SAFETY MEASURES ARE IN PLACE. CALL LIGHT WITHIN REACH. WILL CONTINUE TO MONITOR
--- NOTE | 2019-01-15 02:15 | NUR ---
PT IS SLEEPING COMFORTABLY IN BED. RESPIRATIONS ARE EQUAL AND UNLABORED. SAFETY MEASURES ARE IN PLACE. HOB ELEVATED. WILL CONTINUE TO MONITOR.
[2019-01-15 04:00] VITALS: BP 90/50
[2019-01-15] MEDS: CLINDAMYCIN PHOS 600MG/D5W PM 50 ML IV SCH ×3 (04:11→20:11)
--- NOTE | 2019-01-15 04:15 | NUR ---
PT WAS CLEANED AND REPOSITION FOR COMFORT. PT RR ELEVATED AFTER TURNING RR 38 RT CALLED. PT WAS SUCTION X2. TOLERATED WELL. VITAL SIGNS ARE STABLE.
--- NOTE | 2019-01-15 04:20 | NUR ---
RT AT BEDSIDE. PT RR DOWN TO 24/MIN. SAFETY MEASURES ARE IN PLACE. WILL CONTINUE TO MONITOR.
[2019-01-15 06:21] LABS: BASOPHILS % (AUTO) 0.2 % (0.0-2.0); EOSINOPHILS # (AUTO) 0.3 K/uL (0-0.4); EOSINOPHILS % (AUTO) 2.4 % (0.0-4.0); HEMOGLOBIN 7.4 g/dL (12.0-18.0); LYMPHOCYTES # (AUTO) 0.5 K/uL (2.0-11.5); LYMPHOCYTES % (AUTO) 3.9 % (20.5-51.1); MEAN CORPUSCULAR HEMOGLOBIN 31 pg (27-31); MEAN CORPUSCULAR HGB CONC 32 g/dL (33-37); MEAN CORPUSCULAR VOLUME 96.5 fL (80-94); MONOCYTES # (AUTO) 1.3 K/uL (0.8-1.0); MONOCYTES % (AUTO) 9.1 % (1.7-9.3); NEUTROPHILS # (AUTO) 11.9 K/uL (1.8-7.7); NEUTROPHILS % (AUTO) 84.4 % (42.2-75.2); PLATELET COUNT (AUTO) 348 K/uL (140-450); RED BLOOD CELL COUNT(AUTO) 2.38 MIL/uL (4.20-6.10); WHITE BLOOD COUNT (AUTO) 14.1 K/uL (4.8-10.8)
[2019-01-15] MEDS: METOCLOPRAMIDE 10 MG/10 ML SYRP UDC GT SCH ×3 (06:30→17:30)
[2019-01-15] MEDS: PANTOPRAZOLE 40 MG TABEC PO SCH (06:30)
--- NOTE | 2019-01-15 06:30 | NUR ---
REGLAN AND PROTONIX GIVEN VIA G TUBE. PT WITH ZERO RESIDUAL. ALL NEEDS MET AT THIS TIME. WILL CONTINUE TO MONITOR.
[2019-01-15] MEDS: ALBUTEROL SULFATE/IPRATROPIU 3 ML SOL IH SCH ×3 (06:57→19:36)
--- NOTE | 2019-01-15 06:57 | NUR ---
RECEIVED PT ON DOCUMENTED SETTINGS, ON CARESCAPE, ALARMS ARE ON AND AUDIBLE, PTS TRACH SHILEY 8 XLT IS SECURE, BS COARSE SX PT, HHN GIVEN I\L WITH 3 MG DUONEB PT IN HF AWAKE, BMV HOB VENT PLUGGED INTO RED OUTLET, CONT. POX IN PLACE
--- NOTE | 2019-01-15 07:20 | NUR ---
RECEIVED PT REPORT FROM AIR DUCT MECHANIC NURSE AT BEDSIDE. PT IS AWAKE WATCHING TV, NO S/S OF ANY ACUTE DISTRESS OR SOB NOTED. NO C/O PAIN. PT IS TRACH TO VENT. G TUBE IN PLACE INFUSING JEVITY 1.2 60 ML/HR, WITH WATER FLUSHES 150 ML Q4H. RUE PICC LINE INSERTED, INFUSING NS 10 ML/HR TKO. FALL PRECAUTIONS AND ASPIRATION PRECAUTIONS ARE IN PLACE. CALL LIGHT IS WITHIN PT'S REACH. WILL CONTINUE TO MONITOR.
--- NOTE | 2019-01-15 07:29 | NUR ---
GAVE BEDSIDE REPORT TO ROC MILLER. PT ENDORSED IN STABLE CONDITION.
[2019-01-15 07:47] LABS: ANION GAP 12.3 (8-16); CARBON DIOXIDE 22.5 mmol/L (21-32); CHLORIDE 106 mmol/L (98-107); CREATININE 1.6 mg/dL (0.7-1.3); GLUCOSE 130 mg/dL (74-106); POTASSIUM 3.8 mmol/L (3.5-5.1); SODIUM SERUM 137 mmol/L (136-145); UREA NITROGEN, BLOOD 26 mg/dL (7-18)
[2019-01-15 07:53] LABS: MAGNESIUM 2.5 mg/dL (1.8-2.4); PHOSPHORUS 4.9 mg/dL (2.5-4.9)
[2019-01-15 08:00] VITALS: BP 106/46
[2019-01-15] MEDS: POTASSIUM CHLORIDE 20% 40 MEQ/15 ML UDC GT SCH (08:51)
[2019-01-15] MEDS: LACTOBACILLUS RHAMNOSUS GG 1 EACH CAP PO SCH (08:52)
[2019-01-15] MEDS: CARVEDILOL 12.5 MG TAB PO SCH ×2 (08:52→20:14)
[2019-01-15] MEDS: FERROUS SULFATE 300 MG/5 ML UDC GT SCH ×2 (08:52→20:14)
[2019-01-15] MEDS: LACTULOSE 20 GM/30 ML UDC PO SCH (08:53)
[2019-01-15] MEDS: MAGNESIUM CITRATE 300 ML BTL GT SCH (08:53)
[2019-01-15] MEDS: SODIUM FERRIC GLUCONATE 125 MG in NACL 0.9% 100 ML IV SCH (08:55)
[2019-01-15] MEDS: Z-GUARD PASTE TP SCH (09:00)
--- NOTE | 2019-01-15 09:30 | NUR ---
SCHEDULED AM MEDS ADMINISTERED. PT TOLERATED WELL.
--- NOTE | 2019-01-15 10:00 | NUR ---
PT WAS GIVEN A BED BATH, CHANGED AND REPOSITIONED, NEW FOAM DRESSING APPLIED TO REDDENED AREA ON SACRUM, AND LINENS CHANGED. PT TOLERATED WELL.
[2019-01-15 12:00] VITALS: BP 100/44
[2019-01-15] MEDS: LEVOFLOXACIN 750 MG/D5W PREMIX 150 ML IV SCH (14:15)
--- NOTE | 2019-01-15 14:22 | NUR ---
PT NAPPING AT THIS TIME, NO S/S OF ACUTE DISTRESS, NO SOB OR C/O PAIN. CALL LIGHT IS WITHIN REACH, WILL CONTINUE TO MONITOR.
[2019-01-15 16:00] VITALS: BP 94/42
--- NOTE | 2019-01-15 17:32 | NUR ---
NEW SUCTION CANISTER SET UP
--- NOTE | 2019-01-15 19:14 | NUR ---
RECEIVED BEDSIDE REPORT FROM ROC MILLER. [facility] FIO[facility] 40% VT 500 RR 16 PEEP 5 PT 97%. PT ON TUBE FEEDING JEVITY 1.2 AT 60ML/H WATER FLUSH 150ML/Q4H BEGAN 01/15/19 AT 1000. SKIN INTACT SACRAL REDNESS Z GUARD AND OPTIFOAM ON. PER NURSE PT HAD 2BM TODAY. PT IS INCONTINENT. PT REFUSING EGD AND COLONOSCOPY PROCEDURES. PT WITH RUE PICC LINE DOUBLE LUMEN ONLY ONE IS PATENT TKO. PLAN OF CARE DISCUSSED. SAFETY MEASURES ARE IN PLACE. WILL CONTINUE TO MONITOR.
--- NOTE | 2019-01-15 19:25 | NUR ---
PT ENDORSED TO PAPER GUILLOTINE OPERATOR NURSE IN STABLE CONDITION.
[2019-01-15 20:00] VITALS: BP 105/37
--- NOTE | 2019-01-15 20:11 | NUR ---
VITAL SIGNS ARE WITHIN NORMAL LIMITS. SUCTION THICK WHITE SECRETION. PT WITH 5 CC RESIDUAL TOLERATING FEEDING WELL. PT ABDOMEN REMAINS DISTENDED PER DAY SHIFT RN PT WITH 2 BM TODAY. DUE MEDICATIONS GIVEN. ORAL CARE GIVEN. PT TOLERATED WELL. CALL LIGHT WITHIN REACH. WILL CONTINUE TO MONITOR.
[2019-01-15] MEDS: MIRTAZAPINE 15 MG TAB GT SCH (20:13)
[2019-01-15] MEDS: OLANZapine 2.5 MG TAB GT SCH (20:14)
--- NOTE | 2019-01-15 22:00 | NUR ---
PT WAS CLEANED AND REPOSITION FOR COMFORT. SUCTION THICK WHITE SECRETION X2. NO S/S OF DISTRESS. SAFETY MEASURES IN PLACE. HOB ELEVATED. CALL LIGHT WITHIN REACH. WILL CONTINUE TO MONITOR.
--- NOTE | 2019-01-15 22:14 | NUR ---
AC 14, 450, +5, 40%. VITALS STABLE: 100%, RR 20, PULSE 65, COARSE BREATH SOUNDS. SXNED FOR MODERATE AMOUNT OF THICK WHITE. ALARMS ON AND AUDIBLE. TRACH SHILEY 8 XLT IS PATENT AND SECURE, BS COARSE SX PT. TX GIVEN WITH NO ADVERSE REACTION. BAG MASK AT BEDSIDE. VENT PLUGGED INTO RED OUTLET. CONT. PULSE-OX IN PLACE.
--- NOTE | 2019-01-15 23:54 | NUR ---
VITAL SIGNS ARE WITHIN NORMAL LIMITS. VS: 95/51 HR 62, RR 22, 97% ON TRACH TO VENT. ALL NEEDS MET AT THIS TIME. CALL LIGHT WITHIN REACH. WILL CONTINUE TO MONITOR.
[2019-01-16] VITALS: BP 95/51
--- NOTE | 2019-01-16 01:30 | NUR ---
PT CLEANED AND REPOSITION FOR COMFORT. SUCTION PT X2. PT TOLERATED WELL. NO S/S OF DISTRESS. WILL CONTINUE TO MONITOR.
[2019-01-16 04:00] VITALS: BP 110/42
[2019-01-16] MEDS: CLINDAMYCIN PHOS 600MG/D5W PM 50 ML IV SCH ×3 (04:10→20:20)
--- NOTE | 2019-01-16 04:30 | NUR ---
VITAL SIGNS ARE WITHIN NORMAL LIMITS.PT WAS CLEANED AND REPOSITION FOR COMFORT. ALL NEEDS MET AT THIS TIME. WILL CONTINUE TO MONITOR. CALL LIGHT WITHIN REACH.
--- NOTE | 2019-01-16 06:00 | NUR ---
NEW FEEDING BAG STARTED. PT WITH ZERO RESIDUAL. ALL NEEDS MET AT THIS TIME. WILL CONTINUE TO MONITOR.
[2019-01-16] MEDS: PANTOPRAZOLE 40 MG TABEC PO SCH (06:30)
[2019-01-16] MEDS: METOCLOPRAMIDE 10 MG/10 ML SYRP UDC GT SCH ×3 (06:30→18:08)
--- NOTE | 2019-01-16 06:30 | NUR ---
SCHEDULED MEDICATIONS GIVEN. PT WITH NO RESIDUAL. ALL NEEDS MET AT THIS TIME. CALL LIGHT WITHIN REACH.
[2019-01-16 06:35] LABS: BASOPHILS % (AUTO) 0.3 % (0.0-2.0); EOSINOPHILS # (AUTO) 0.4 K/uL (0-0.4); EOSINOPHILS % (AUTO) 3.2 % (0.0-4.0); HEMATOCRIT 21.1 % (36-52); LYMPHOCYTES # (AUTO) 0.7 K/uL (2.0-11.5); LYMPHOCYTES % (AUTO) 5.6 % (20.5-51.1); MEAN CORPUSCULAR HEMOGLOBIN 32 pg (27-31); MEAN CORPUSCULAR HGB CONC 33 g/dL (33-37); MEAN CORPUSCULAR VOLUME 96.1 fL (80-94); MONOCYTES # (AUTO) 1.3 K/uL (0.8-1.0); MONOCYTES % (AUTO) 10.3 % (1.7-9.3); NEUTROPHILS % (AUTO) 80.6 % (42.2-75.2); PLATELET COUNT (AUTO) 315 K/uL (140-450); RED CELL DISTRIBUTION WIDTH 18.1 % (11.6-13.7); WHITE BLOOD COUNT (AUTO) 12.4 K/uL (4.8-10.8)
[2019-01-16 06:52] LABS: ANION GAP 10.8 (8-16); CARBON DIOXIDE 22.7 mmol/L (21-32); CHLORIDE 105 mmol/L (98-107); CREATININE 1.5 mg/dL (0.7-1.3); GLUCOSE 118 mg/dL (74-106); POTASSIUM 4.5 mmol/L (3.5-5.1); SODIUM SERUM 134 mmol/L (136-145); UREA NITROGEN, BLOOD 25 mg/dL (7-18)
[2019-01-16 07:03] LABS: MAGNESIUM 2.5 mg/dL (1.8-2.4); PHOSPHORUS 3.8 mg/dL (2.5-4.9)
--- NOTE | 2019-01-16 07:10 | NUR ---
BEDSIDE REPORT RECEIVED FROM SHIFT NURSE. PT IS AWAKE AND ALERT WATCHING TV IN BED. NO S/S OF ACUTE DISTRESS OR SOB. PT IS ON TRACH TO VENT. SKIN INTACT. RUE PICC LINE NOTED. FALL PRECAUTIONS IN ASPIRATION PRECAUTIONS IN PLACE. CALL LIGHT IS WITHIN REACH. WILL CONTINUE TO MONITOR.
--- NOTE | 2019-01-16 07:18 | NUR ---
BEDSIDE REPORT GIVEN TO ROC MILLER. PT ENDORSED IN STABLE CONDITION.
--- NOTE | 2019-01-16 07:58 | NUR ---
RCVD TRACHED PT WITH A SHILEY SIZE 8XLT ON VENT SETTINGS OF AC 16, VT 450, PEEP +5, FIO2 40%.ALARMS SET & AUDIBLE .AMBU BAG AT BEDSIDE, VENT CONNECTED TO RED OUTLET. PT AWAKE, ALERT RESTING COMFORTABLY. SUCTIONED A SMALL AMOUNT OF FROTHY WHITE SECRETIONS. WILL CONTINUE TO MONITOR.
[2019-01-16] MEDS: ALBUTEROL SULFATE/IPRATROPIU 3 ML SOL IH SCH ×3 (07:59→19:22)
[2019-01-16 08:00] VITALS: BP 102/64
--- NOTE | 2019-01-16 08:16 | NUR ---
RT AT BEDSIDE
[2019-01-16] MEDS: LACTOBACILLUS RHAMNOSUS GG 1 EACH CAP PO SCH (08:28)
[2019-01-16] MEDS: NACL 0.9% 1,000 ML IV SCH ×3 (08:28→21:44)
[2019-01-16] MEDS: FERROUS SULFATE 300 MG/5 ML UDC GT SCH ×2 (08:28→20:19)
[2019-01-16] MEDS: POTASSIUM CHLORIDE 20% 40 MEQ/15 ML UDC GT SCH (08:32)
[2019-01-16] MEDS: MAGNESIUM CITRATE 300 ML BTL GT SCH (08:32)
[2019-01-16] MEDS: LACTULOSE 20 GM/30 ML UDC PO SCH (08:32)
[2019-01-16] MEDS: CARVEDILOL 12.5 MG TAB PO SCH ×2 (08:32→20:27)
--- NOTE | 2019-01-16 08:42 | NUR ---
SCHEDULED AM MEDS ADMINISTERED, PT TOLERATED WELL. HELD THE COREG DUE TO LOW BP, AND HELD LAXATIVES PT HAD 2 LIQUID STOOLS YESTERDAY.
[2019-01-16] MEDS: SODIUM FERRIC GLUCONATE 125 MG in NACL 0.9% 100 ML IV SCH (08:52)
[2019-01-16] MEDS: Z-GUARD PASTE TP SCH (09:00)
[2019-01-16 12:00] VITALS: BP 108/46
--- NOTE | 2019-01-16 14:50 | NUR ---
01/16/19 RD FOLLOW UP COMPLETED PLEASE REFER TO NUTRITION ASSESSMENT UNDER CARE ACTIVITY FOR ESTIMATED NUTRITIONAL NEEDS. 1. CONTINUE JEVITY 1.2 AT 60 ML/HR MEDICALLY NECESSARY -THIS WILL PROVIDE A VOLUME OF 1440 ML, 1728 KCAL, AND 80 GM PRO. IT MEETS 100% OF PT ENERGY NEEDS AND 88% OF PROTEIN NEED. 2. CONTINUE FREE WATER FLUSH [address] TO FOLLOW-UP 2-3 DAYS, HIGH RISK PAM VAIL RD
[2019-01-16] MEDS: LEVOFLOXACIN 750 MG/D5W PREMIX 150 ML IV SCH (15:20)
--- NOTE | 2019-01-16 15:25 | NUR ---
PT GETTING A CHEST XRAY AT THIS TIME.
--- NOTE | 2019-01-16 15:37 | NUR ---
PT REFUSED SUCTIONING AT THIS TIME. PT NOT IN ANY DISTRESS. PT IS AWAKE & ALERT. WILL CONT TO MONITOR
[2019-01-16 16:00] VITALS: BP 118/43
--- NOTE | 2019-01-16 17:48 | NUR ---
PT REMAINS ON DOCUMENTED VENT SETTINGS. PT IN BED WATCHING TV NOT IN ANY DISTRESS. VENT ALARMS REMAIN ON AND FUNCTIONING. TRACH REMAINS SECURE WITH A PATENT AIRWAY.
--- NOTE | 2019-01-16 19:20 | NUR ---
PT ENDORSED IN STABLE CONDITION TO COURT COMMISSIONER NURSE
--- NOTE | 2019-01-16 19:22 | NUR ---
RECEIVED PT ON CHARTED SETTINGS, ALARMS SET AND AUDIBLE, BVM AT BEDSIDE, VENTILATOR PLUGGED INTO RED OUTLET, AIRWAY SECURE AND PATENT, NO DISTRESS NOTED AT THIS TIME.
--- NOTE | 2019-01-16 19:25 | NUR ---
RECEIVED PT ON BED, AAOX4, APHASIC BUT CAN MOUTH WORDS, DENIES PAIN, VITAL SIGNS TAKEN, BP LOW BUT STABLE, ON TRACH TO VENT WITH FF SETTINGS:FI02-40%, TV-500ML, FLOW RATE-50, RATE-16, PEEP-5, SAT-99%, IVF INFUSING WELL VIA RT UA PICC LINE, G-TUBE ON-GOING, KEEP HOB ELEVATED AT ALL TIMES, BEDBOUND, WILL REPOSITION Q2H AND OFFLOAD PRESSURE AREAS, SAFETY MEASURES IN PLACE, SIDE RAILS UP AND BED ALARM ON, CALL LIGHT WITHIN REACH.
[2019-01-16 20:00] VITALS: BP 105/48
[2019-01-16] MEDS: MIRTAZAPINE 15 MG TAB GT SCH (20:19)
[2019-01-16] MEDS: OLANZapine 2.5 MG TAB GT SCH (20:20)
--- NOTE | 2019-01-16 20:20 | NUR ---
5ML G-TUBE RESIDUAL NOTED, DUE MEDS ADMINISTERED, ORAL CARE DONE USING VAP KIT, INCONTINENT OF URINE, CLEANED AND REPOSITIONED, ALL NEEDS ANTICIPATED.
--- NOTE | 2019-01-16 22:30 | NUR ---
SUCTION SECRETIONS PRN WITH SCANT SECRETION NOTED, MONITORED CLOSELY.
[2019-01-17] VITALS: BP 111/55
--- NOTE | 2019-01-17 | NUR ---
PT AWAKE, WATCHING TV, VITAL SIGNS STABLE, DENIES PAIN, IVF INFUSING WELL, ORAL CARE DONE, TOLERATED WELL, SUCTION SECRETION PRN, CONTINUE TO MONITOR CLOSELY.
[2019-01-17] MEDS: NACL 0.9% 1,000 ML IV SCH ×2 (03:45→13:45)
[2019-01-17 04:00] VITALS: BP 96/60
--- NOTE | 2019-01-17 04:00 | NUR ---
PT SLEEPING, EASILY AROUSABLE, VITAL SIGNS STABLE, DENIES ANY PAIN, ORAL CARE DONE, SUCTION SECRETION PRN, MONITORED CLOSELY.
[2019-01-17] MEDS: CLINDAMYCIN PHOS 600MG/D5W PM 50 ML IV SCH ×3 (04:08→20:32)
[2019-01-17] MEDS: PANTOPRAZOLE 40 MG TABEC PO SCH (06:35)
[2019-01-17] MEDS: METOCLOPRAMIDE 10 MG/10 ML SYRP UDC GT SCH ×3 (06:35→16:52)
--- NOTE | 2019-01-17 06:40 | NUR ---
5ML G-TUBE RESIDUAL NOTED, DUE MEDS ADMINISTERED, KEEP HOB ELEVATED AT ALL TIMES, NO RESP DISTRESS NOTED, PT WATCHING TV.
--- NOTE | 2019-01-17 07:18 | NUR ---
PT AWAKE, NO SIGNS OF PAIN, REPORT GIVEN TO PAUL RAY FOR CONTINUITY OF CARE.
--- NOTE | 2019-01-17 07:19 | NUR ---
RECEIVED REPORT FROM DICE DEALER NURSE ALIX AT BEDSIDE FOR CONTINUITY OF CARE. PT IN STABLE CONDITION. RESPIRATIONS EVEN AND UNLABORED. TRACH TO VENT INTACT AND PATENT. PICC LINE INTACT AND PATENT. SAFETY MEASURES IN PLACE. BED IN LOW POSITION. BED ALARM ON. CALL LIGHT AT BEDSIDE. WILL CONTINUE TO MONITOR.
[2019-01-17] MEDS: ALBUTEROL SULFATE/IPRATROPIU 3 ML SOL IH SCH ×3 (07:51→20:20)
[2019-01-17 08:00] VITALS: BP 105/42
--- NOTE | 2019-01-17 08:00 | NUR ---
FOUND PT RESTING COMFORTABLY WATCHING TV AWAKE & ALERT. PTON VENT WITH SETTINGS OF: A/C 16, VT:450, PEEP +5, FIO2 40% WITH A TRACH SHILEY 8XLT. AMBU BAD WAS AT BEDSIDE & VENT CONNECTED TO RED OUTLET. PT SOUNDED COARSE & WHEN SUCTIONED A SMALL TO MOD AMOUNT OF THICK YELLOW TENACIOUS SECRETIONS.
--- NOTE | 2019-01-17 08:13 | NUR ---
ALARM ON VENT ON & AUDIBLE
[2019-01-17 08:21] LABS: ANION GAP 10.4 (8-16); CARBON DIOXIDE 22.3 mmol/L (21-32); CHLORIDE 104 mmol/L (98-107); CREATININE 1.3 mg/dL (0.7-1.3); GLUCOSE 110 mg/dL (74-106); POTASSIUM 4.7 mmol/L (3.5-5.1); SODIUM SERUM 132 mmol/L (136-145); UREA NITROGEN, BLOOD 23 mg/dL (7-18)
[2019-01-17 08:29] LABS: MAGNESIUM 2.4 mg/dL (1.8-2.4); PHOSPHORUS 3.1 mg/dL (2.5-4.9)
[2019-01-17 08:38] LABS: BASOPHILS % (AUTO) 0.4 % (0.0-2.0); EOSINOPHILS # (AUTO) 0.3 K/uL (0-0.4); EOSINOPHILS % (AUTO) 2.9 % (0.0-4.0); LYMPHOCYTES # (AUTO) 0.5 K/uL (2.0-11.5); MEAN CORPUSCULAR HEMOGLOBIN 33 pg (27-31); MEAN CORPUSCULAR HGB CONC 34 g/dL (33-37); MONOCYTES # (AUTO) 1.3 K/uL (0.8-1.0); MONOCYTES % (AUTO) 12.1 % (1.7-9.3); NEUTROPHILS # (AUTO) 8.3 K/uL (1.8-7.7); NEUTROPHILS % (AUTO) 79.6 % (42.2-75.2); PLATELET COUNT (AUTO) 297 K/uL (140-450); RED BLOOD CELL COUNT(AUTO) 2.08 MIL/uL (4.20-6.10); RED CELL DISTRIBUTION WIDTH 18.3 % (11.6-13.7); WHITE BLOOD COUNT (AUTO) 10.4 K/uL (4.8-10.8)
--- NOTE | 2019-01-17 08:54 | NUR ---
FAXED INQUIRY OVER TO [facility] [phone] PHONE [phone] FOR POS DISCHARGE OVER WEEKEND.
[2019-01-17 08:57] LABS: HEMOGLOBIN 6.8 g/dL (12.0-18.0)
--- NOTE | 2019-01-17 08:57 | NUR ---
CRITICAL LAB HGB 6.8 DR. SALAZAR IS AWARE. PACK BLOOD 1 UNIT ORDERED
[2019-01-17] MEDS: CARVEDILOL 12.5 MG TAB PO SCH ×2 (09:00→20:41)
[2019-01-17] MEDS: MAGNESIUM CITRATE 300 ML BTL GT SCH (09:00)
--- NOTE | 2019-01-17 09:30 | NUR ---
HELD HEPARIN DUE TO LOW HGB 6.8
--- NOTE | 2019-01-17 09:38 | NUR ---
SUCTIONED PT TOLERATED WELL. CALLED RT PT C/O TIGHTNESS OF TRACH. RT ON IT'S WAY WILL CONTINUE TO MONITOR.
[2019-01-17] MEDS: FERROUS SULFATE 300 MG/5 ML UDC GT SCH ×2 (09:45→20:31)
[2019-01-17] MEDS: LACTOBACILLUS RHAMNOSUS GG 1 EACH CAP PO SCH (09:45)
[2019-01-17] MEDS: LACTULOSE 20 GM/30 ML UDC PO SCH (09:45)
[2019-01-17] MEDS: POTASSIUM CHLORIDE 20% 40 MEQ/15 ML UDC GT SCH (09:45)
[2019-01-17] MEDS: SODIUM FERRIC GLUCONATE 125 MG in NACL 0.9% 100 ML IV SCH (09:45)
[2019-01-17] MEDS: Z-GUARD PASTE TP SCH (09:46)
[2019-01-17] MEDS: ASCORBIC ACID 500 MG/5 ML ORASYR GT SCH (09:52)
--- NOTE | 2019-01-17 11:12 | NUR ---
CLEANED AND REPOSITIONED PT AFTER URINATION. PT TOLERATED WELL. BED IN LOW POSITION. CALL LIGHT AT BEDSIDE. BED ALARM ON. WILL CONTINUE TO MONITOR.
[2019-01-17] MEDS ORDERED: AMLO5TAB GT (11:33)
[2019-01-17] MEDS ORDERED: MAGN1.753 GT (11:42)
[2019-01-17] MEDS ORDERED: CARV12.52 PO (11:42)
[2019-01-17] MEDS ORDERED: FER300L GT (11:42)
[2019-01-17] MEDS ORDERED: LACT10CA PO (11:42)
[2019-01-17] MEDS ORDERED: METO5SOL20 GT (11:42)
[2019-01-17] MEDS ORDERED: FURO20TA8 PO (11:42)
[2019-01-17] MEDS ORDERED: ZGUARD TP (11:42)
[2019-01-17] MEDS ORDERED: LACT10SO11 PO (11:42)
[2019-01-17] MEDS: ACETAMINOPHEN 325 MG TAB PO SCH ×3 (11:48→20:00)
--- NOTE | 2019-01-17 11:52 | NUR ---
PT SUCTIONED OBTAINED MODERATE AMOUNT OF THICK SECRETIONS, AIRWAY IS PATENT AND TRACH IS SECURE. PT NOT IN ANY DISTRESS IN BED WATCHING TV WITH NURSE BEDSIDE. WILL CONTINUE TO MONITOR.
--- NOTE | 2019-01-17 11:58 | NUR ---
GAVE ORDERED DUE MEDICATIONS AT THIS TIME, PT TOLERATED WELL. BED IN LOW POSITION. BED ALARM ON. CALL LIGHT AT BEDSIDE. WILL CONTINUE TO MONITOR.
[2019-01-17 12:00] VITALS: BP 104/42
--- NOTE | 2019-01-17 13:27 | NUR ---
PT WAS COMFORTABLY RESTING. LUNG SOUNDS WERE RHONCHI BUT PT REFUSED SUCTIONING AT THE TIME
[2019-01-17] MEDS ORDERED: FAMO-90 GT (13:39)
--- NOTE | 2019-01-17 14:00 | NUR ---
PT STARTED ON PACKED RBC UNABLE TO GIVE LEVOFLOXACIN AT THIS TIME.
--- NOTE | 2019-01-17 14:46 | NUR ---
SPOKE WITH MARY AT [facility] [place]. THE PATIENT CAN GO TO ROOM 24B UNDER DR. GUNN OVER THE WEEKEND. DR. MENCHACA AWARE. INFORMED CARLIE MILLER
--- NOTE | 2019-01-17 15:33 | NUR ---
PT RESTING COMFORTABLY. SUCTIONED A SMALL AMOUNT OF SECRETIONS.
[2019-01-17 16:00] VITALS: BP 117/51
[2019-01-17] MEDS: FUROSEMIDE 20 MG TAB PO SCH ×2 (16:51→20:00)
--- NOTE | 2019-01-17 17:00 | NUR ---
PT REPOSITIONED AND CLEANED AFTER BM. PT TOLERATED WELL. BED IN LOW POSITION. BED ALARM ON. CALL LIGHT AT BEDSIDE. WILL CONTINUE TO MONITOR.
--- NOTE | 2019-01-17 17:30 | NUR ---
FINISHED 1 UNIT PACKED RBC. PT TOLERATED WELL.
--- NOTE | 2019-01-17 17:39 | NUR ---
LEFT PT COMFORTABLE RESTING WITH SECURED TRACH.
[2019-01-17] MEDS ORDERED: CLINICAL MONITORING MC PRN (19:15)
--- NOTE | 2019-01-17 19:18 | NUR ---
RECEIVED PT ON BED WATCHING TV, AAOX4, DENIES PAIN, VITAL SIGNS TAKEN, BP LOW BUT STABLE, ON TRACH TO VENT WITH FF SETTINGS:FI02-40%, TV-500ML, FLOW RATE-50, RATE-16, PEEP-5, SAT-98%, IVF INFUSING WELL VIA RT UA PICC LINE, G-TUBE ON-GOING, KEEP HOB ELEVATED AT ALL TIMES, BEDBOUND, WILL REPOSITION Q2H AND OFFLOAD PRESSURE AREAS, SAFETY MEASURES IN PLACE, SIDE RAILS UP AND BED ALARM ON, CALL LIGHT WITHIN REACH.
--- NOTE | 2019-01-17 19:18 | NUR ---
GAVE BEDSIDE REPORT TO MATERIAL MANAGER NURSE ALIX FOR CONTINUITY OF CARE. PT IN STABLE CONDITION.
[2019-01-17 20:00] VITALS: BP 109/43
[2019-01-17] MEDS: MIRTAZAPINE 15 MG TAB GT SCH (20:31)
[2019-01-17] MEDS: OLANZapine 2.5 MG TAB GT SCH (20:32)
--- NOTE | 2019-01-17 20:40 | NUR ---
5ML RESIDUAL NOTED, DUE MEDS ADMINISTERED, ORAL CARE DONE USING VAP KIT, SUCTION SECRETIONS PRN, ALL NEEDS ATTENDED.
--- NOTE | 2019-01-17 21:30 | NUR ---
PT HAD LOOSE BROWN STOOL MODERATE AMOUNT, INCONTINENT OF URINE, CLEANED, REPOSITIONED AND OFFLOAD PRESSURE AREAS, MONITORED CLOSELY.
[2019-01-18] VITALS: BP 103/46
--- NOTE | 2019-01-18 | NUR ---
PT AWAKE, WATCHING TV, VITAL SIGNS TAKEN, BP ON THE MOW SIDE BUT STABLE, DENIES PAIN, IVF INFUSING WELL, SUCTION SECRETION PRN, CONTINUE TO MONITOR CLOSELY.
[2019-01-18] MEDS: NACL 0.9% 1,000 ML IV SCH ×3 (03:27→15:53)
[2019-01-18 04:00] VITALS: BP 109/49
--- NOTE | 2019-01-18 04:00 | NUR ---
PT SLEEPING, EASILY AROUSABLE, VITAL SIGNS STABLE, DENIES ANY PAIN, MONITORED CLOSELY.
[2019-01-18] MEDS: CLINDAMYCIN PHOS 600MG/D5W PM 50 ML IV SCH ×3 (04:30→21:31)
[2019-01-18] MEDS: PANTOPRAZOLE 40 MG TABEC PO SCH (06:30)
[2019-01-18] MEDS: METOCLOPRAMIDE 10 MG/10 ML SYRP UDC GT SCH ×3 (06:30→15:53)
[2019-01-18] MEDS: ALBUTEROL SULFATE/IPRATROPIU 3 ML SOL IH SCH ×3 (06:34→19:48)
--- NOTE | 2019-01-18 06:34 | NUR ---
REC'D PT ON CARESCAPE SETTINGS AC 16 VT 500 PEEP 5 FIO2 40% ALARMS ON AND AUDIBLE AND AMBU BAG AT SIDE OF VENT AND VENT IS PLUGGED INTO RED OUTLET, I\L TX GIVEN WITH DUONEB 3ML WITH NO ADVERSE REACTION POST TX ,SXN PT SMALL AMT OF WHITE SECRETIONS B\S ARE RHONCHI BILATERALLY, PT IS AWAKE AND ALERT WITH NO SIGNS OF DISTRESS NOTED PT IS TRACH WITH SHILEY 8 XLT AND SKIN INTEGRITY IS INTACT
--- NOTE | 2019-01-18 06:35 | NUR ---
PT AWAKE WATCHING TV, 5ML RESIDUAL NOTED, DUE MEDS ADMINISTERED, TOLERATED WELL, IVF INFUSING WELL, SAFETY MEASURES IN PLACE, CALL LIGHT WITHIN REACH.
--- NOTE | 2019-01-18 07:15 | NUR ---
PT AWAKE, NO SIGNS OF DISTRESS, BEDSIDE REPORT GIVEN TO PAUL GREEN FOR CONTINUITY OF CARE.
--- NOTE | 2019-01-18 07:18 | NUR ---
RECEIVED BEDSIDE REPORT FROM TIME STUDY ANALYST RN. PT IN BED WATCHING TV. AAOX4, DENIES PAIN. COMMUNICATES VIA WRITING ON PAPER/CLIPBOARD. TRACH TO VENT. RT UA PICC LINE PATENT AND ASYMPTOMATIC, INFUSING IVF PER MD ORDERS. G-TUBE FEEDING ON-GOING, KEEP HOB ELEVATED AT ALL TIMES. PT IS BEDBOUND. ALL SAFETY PRECAUTIONS IN PLACE, WILL CONTINUE TO MONITOR.
[2019-01-18 08:00] VITALS: BP 121/48
[2019-01-18] MEDS: LACTULOSE 20 GM/30 ML UDC PO SCH (09:00)
[2019-01-18] MEDS: MAGNESIUM CITRATE 300 ML BTL GT SCH (09:00)
[2019-01-18] MEDS: CARVEDILOL 12.5 MG TAB PO SCH ×2 (09:00→21:00)
[2019-01-18 09:02] LABS: BASOPHILS % (AUTO) 0.2 % (0.0-2.0); EOSINOPHILS # (AUTO) 0.3 K/uL (0-0.4); EOSINOPHILS % (AUTO) 2.9 % (0.0-4.0); HEMATOCRIT 24.8 % (36-52); HEMOGLOBIN 8.2 g/dL (12.0-18.0); LYMPHOCYTES # (AUTO) 0.6 K/uL (2.0-11.5); MEAN CORPUSCULAR HEMOGLOBIN 31 pg (27-31); MEAN CORPUSCULAR HGB CONC 33 g/dL (33-37); MEAN CORPUSCULAR VOLUME 94.6 fL (80-94); MONOCYTES # (AUTO) 1.1 K/uL (0.8-1.0); NEUTROPHILS # (AUTO) 8.1 K/uL (1.8-7.7); PLATELET COUNT (AUTO) 287 K/uL (140-450); RED BLOOD CELL COUNT(AUTO) 2.62 MIL/uL (4.20-6.10); RED CELL DISTRIBUTION WIDTH 19.9 % (11.6-13.7); WHITE BLOOD COUNT (AUTO) 10.1 K/uL (4.8-10.8)
[2019-01-18 09:16] LABS: CARBON DIOXIDE 24.7 mmol/L (21-32); CHLORIDE 106 mmol/L (98-107); CREATININE 1.2 mg/dL (0.7-1.3); GLUCOSE 108 mg/dL (74-106); POTASSIUM 4.7 mmol/L (3.5-5.1); SODIUM SERUM 137 mmol/L (136-145); UREA NITROGEN, BLOOD 22 mg/dL (7-18)
[2019-01-18 09:19] LABS: MAGNESIUM 2.4 mg/dL (1.8-2.4); PHOSPHORUS 3.2 mg/dL (2.5-4.9)
[2019-01-18 09:23] LABS: LYMPHOCYTES % (AUTO) 5.8 % (20.5-51.1); MONOCYTES % (AUTO) 10.7 % (1.7-9.3); NEUTROPHILS % (AUTO) 80.4 % (42.2-75.2)
[2019-01-18] MEDS: ASCORBIC ACID 500 MG/5 ML ORASYR GT SCH (09:30)
[2019-01-18] MEDS: FERROUS SULFATE 300 MG/5 ML UDC GT SCH ×2 (09:30→21:32)
[2019-01-18] MEDS: SODIUM FERRIC GLUCONATE 125 MG in NACL 0.9% 100 ML IV SCH (09:30)
[2019-01-18] MEDS: LACTOBACILLUS RHAMNOSUS GG 1 EACH CAP PO SCH (09:30)
[2019-01-18] MEDS: Z-GUARD PASTE TP SCH (09:38)
--- NOTE | 2019-01-18 09:43 | NUR ---
SCHEDULED MEDICATIONS ADMINISTERED. CITROMA AND LACTULOSE WITHHELD DUE TO DIARRHEA. CARVEDILOL NOT GIVEN. HR 60-63. BP 121/48.
--- NOTE | 2019-01-18 11:32 | NUR ---
PT RESTING IN BED, WATCHING TV. DENIES PAIN AND DISCOMFORT. WILL CONTINUE TO MONITOR.
[2019-01-18 12:00] VITALS: BP 128/50
--- NOTE | 2019-01-18 12:19 | NUR ---
PAUSED TUBE FEEDING. SOME FEEDING FORMULA LEAKING INTO TRACH. SUCTIONED TRACH. PT NOT IN ANY DISTRESS. SPO2 100%. WILL INFORM DR. Addendum: 01/18/19 at 1223 by Catalina Cardoso Meng, RN GASTRIC RESIDUAL <5ML. HOB 45 DEGREES, ASPIRATION PRECAUTIONS.
--- NOTE | 2019-01-18 12:34 | NUR ---
NOTIFIED DR. VILLA REGARDING THE TUBE FEEDING (SEE PREVIOUS NOTE AT 1219). PER DR. VILLA, HOLD TUBE FEEDING FOR 4-6 HOURS.
[2019-01-18] MEDS ORDERED: LEVOFLOXACIN 750 MG/D5W PREMIX 150 ML IV SCH (14:00)
--- NOTE | 2019-01-18 14:10 | NUR ---
PT SLEEPING IN BED, RESPIRATIONS EVEN AND UNLABORED. NO FEEDING FORMULA SEEN IN TRACH AT THIS TIME. WILL CONTINUE TO MONITOR.
--- NOTE | 2019-01-18 15:25 | NUR ---
PT RESTING IN BED, VITALS TAKEN-STABLE. NO C/O PAIN OR DISCOMFORT. ALL SAFETY PRECAUTIONS IN PLACE, WILL CONTINUE TO MONITOR.
--- NOTE | 2019-01-18 15:56 | NUR ---
SCHEDULED MEDICATIONS ADMINISTERED.
[2019-01-18 16:00] VITALS: BP 118/49
--- NOTE | 2019-01-18 18:27 | NUR ---
PT RESTING IN BED, WATCHING TV. NO C/O PAIN OR DISCOMFORT. ALL SAFETY PRECAUTIONS IN PLACE, WILL CONTINUE TO MONITOR.
--- NOTE | 2019-01-18 19:21 | NUR ---
ENDORSED POC TO SENIOR QUALITY TECHNICIAN RN. PT IN STABLE CONDITION.
--- NOTE | 2019-01-18 19:25 | NUR ---
Received endorsement from AM shift RN; patient is A/Ox4, able to make needs known by writing on clipboard, bedbound. Introduced self, updated board. Patient on tract to vent, no SOB or distress noted. IV site on right upper arm PICC line, dual lumen, intact, running IVF at 100mL/hr. Skin is intact, but noted with skin redness on perineal area. Bed in the lowest position, call light within reach. Initial assessment done. Will continue to monitor.
--- NOTE | 2019-01-18 19:26 | NUR ---
Addendum to note 1925 - G-tube also noted, with feeding Jevity 1.2.
[2019-01-18 20:00] VITALS: BP 104/45
--- NOTE | 2019-01-18 21:05 | NUR ---
Vitals taken, due meds given, tolerated well. No SOB or distress noted.
[2019-01-18] MEDS: OLANZapine 2.5 MG TAB GT SCH (21:33)
[2019-01-18] MEDS: MIRTAZAPINE 15 MG TAB GT SCH (21:33)
--- NOTE | 2019-01-18 22:10 | NUR ---
Patient was changed and cleaned, chux and linens were changed. Repositioned to left lateral side. No distress noted.
[2019-01-19] VITALS: BP 117/46
--- NOTE | 2019-01-19 00:10 | NUR ---
Vitals taken, patient asleep, visible chest rise and fall noted.
--- NOTE | 2019-01-19 02:30 | NUR ---
Frequent checks made, no distress noted.
[2019-01-19 04:00] VITALS: BP 115/55
--- NOTE | 2019-01-19 04:15 | NUR ---
Vitals taken, no SOB or distress noted.
--- NOTE | 2019-01-19 04:45 | NUR ---
RT inside room, changed trach dressing. Tolerated well.
[2019-01-19] MEDS: NACL 0.9% 1,000 ML IV SCH (04:55)
[2019-01-19] MEDS: CLINDAMYCIN PHOS 600MG/D5W PM 50 ML IV SCH (04:55)
[2019-01-19] MEDS: ALBUTEROL SULFATE/IPRATROPIU 3 ML SOL IH PRN (06:50)
--- NOTE | 2019-01-19 06:50 | NUR ---
RECEIVED PT ON CARESCAPE ON DOCUMENTED SETTINGS, ALARMS ARE ON AND AUDIBLE, PTS TRACH SHILEY 8 XLT IS SECURE, PT IN HF AWAKE, BS COARSE, SX PRT HHN GIVEN I\L WITH 3 MG DUONEB, VENT PLUGGED INTO RED OUTLET, BMV HOB ,CONT POX IN PLACE
--- NOTE | 2019-01-19 07:30 | NUR ---
Endorsed patient to AM shift RN for continuity of care; patient in stable condition.
--- NOTE | 2019-01-19 07:33 | NUR ---
RECEIVED BEDSIDE REPORT FROM INTAKE COORDINATOR RN. PT IN BED WATCHING TV. AAOX4, DENIES PAIN. COMMUNICATES VIA WRITING ON PAPER/CLIPBOARD. TRACH TO VENT. RT UA PICC LINE PATENT AND ASYMPTOMATIC, INFUSING IVF PER MD ORDERS. G-TUBE FEEDING ON-GOING, KEEP HOB ELEVATED AT ALL TIMES. PER INTAKE COORDINATOR RN, PT TOLERATING FEEDING WELL, NO FEEDING FORMULA NOTED IN TRACH. WILL ADVANCE RATE AT 1000. PT IS BEDBOUND AND INCONTINENT. ALL SAFETY PRECAUTIONS IN PLACE, WILL CONTINUE TO MONITOR.
[2019-01-19] MEDS: METOCLOPRAMIDE 10 MG/10 ML SYRP UDC GT SCH (07:37)
[2019-01-19] MEDS: PANTOPRAZOLE 40 MG TABEC PO SCH (07:37)
[2019-01-19 08:00] VITALS: BP 129/50
[2019-01-19] MEDS: LACTOBACILLUS RHAMNOSUS GG 1 EACH CAP PO SCH (08:59)
[2019-01-19] MEDS: FERROUS SULFATE 300 MG/5 ML UDC GT SCH (08:59)
[2019-01-19] MEDS: MAGNESIUM CITRATE 300 ML BTL GT SCH (08:59)
[2019-01-19] MEDS: CARVEDILOL 12.5 MG TAB PO SCH (08:59)
[2019-01-19] MEDS: ASCORBIC ACID 500 MG/5 ML ORASYR GT SCH (08:59)
[2019-01-19] MEDS: LACTULOSE 20 GM/30 ML UDC PO SCH (09:00)
[2019-01-19] MEDS: Z-GUARD PASTE TP SCH (09:10)
[2019-01-19] MEDS: SODIUM FERRIC GLUCONATE 125 MG in NACL 0.9% 100 ML IV SCH (09:10)
--- NOTE | 2019-01-19 09:10 | NUR ---
SCHEDULED MEDICATIONS ADMINISTERED. PT RESTING IN BED,WATCHING TV, IN STABLE CONDITION. DENIES PAIN AND DISCOMFORT.
[2019-01-19 09:19] LABS: HEMATOCRIT 23.4 % (36-52); HEMOGLOBIN 7.8 g/dL (12.0-18.0); MEAN CORPUSCULAR HEMOGLOBIN 32 pg (27-31); MEAN CORPUSCULAR HGB CONC 34 g/dL (33-37); MEAN CORPUSCULAR VOLUME 95.1 fL (80-94); PLATELET COUNT (AUTO) 284 K/uL (140-450); RED BLOOD CELL COUNT(AUTO) 2.46 MIL/uL (4.20-6.10); RED CELL DISTRIBUTION WIDTH 19.5 % (11.6-13.7); WHITE BLOOD COUNT (AUTO) 10.4 K/uL (4.8-10.8)
[2019-01-19 09:59] LABS: ANION GAP 12.4 (8-16); CARBON DIOXIDE 23.8 mmol/L (21-32); CHLORIDE 104 mmol/L (98-107); CREATININE 1.2 mg/dL (0.7-1.3); GLUCOSE 102 mg/dL (74-106); POTASSIUM 4.2 mmol/L (3.5-5.1); SODIUM SERUM 136 mmol/L (136-145); UREA NITROGEN, BLOOD 19 mg/dL (7-18)
--- NOTE | 2019-01-19 10:15 | NUR ---
PER [facility], PATIENT IS ABLE TO GO TO ROOM 24B ANYTIME TODAY. WILL INFORM SALESPERSON ART OBJECTS TO ARRANGE TRANSPORT.
[2019-01-19 10:34] LABS: BASOPHILS % (MANUAL) 0 % (0-2); EOSINOPHILS % (MANUAL) 4 % (0-4); LYMPHOCYTES % (MANUAL) 8 % (20-46); MONOCYTES % (MANUAL) 9 % (5-12)
--- NOTE | 2019-01-19 10:55 | NUR ---
[facility] TRANSPORTATION ARRANGED WITH JEREMY HIDALGO FOR VENT, REPRESENTATIVE AT 1200.
--- NOTE | 2019-01-19 11:29 | NUR ---
REPORT GIVEN TO JORDAN MILLER FROM [facility].
--- NOTE | 2019-01-19 11:44 | NUR ---
PATIENT ASKING ABOUT HIS CLOTHES AND WALLET. NONE FOUND IN ROOM. ASKED ADMITTING AND SECURITY AT [facility], BOTH OF WHICH SAID THEY DO NOT HAVE PT BELONGINGS. CALLED [facility]. PER CRIPPLE WORKER, THEY HAVE PATIENT'S PERSONAL BELONGINGS. NOTIFIED PATIENT OF THIS.
--- NOTE | 2019-01-19 11:46 | NUR ---
DISCHARGE PAPERWORK GIVEN TO PATIENT. EDUCATED PT OF NEW MEDICATIONS AND MEDICATION RECONCILIATION TEACHING GIVEN. PT VERBALIZED UNDERSTANDING. WILL CONTINUE CARE AT [facility]. TUBE FEEDING DISCONTINUED AND IVF DISCONTINUED. [facility] WILL SEROLOGY TEACHER PT AT 1200 TODAY. WILL REMOVE RT PICC BEFORE D/C.
--- NOTE | 2019-01-19 12:00 | NUR ---
RT UA PICC LINE REMOVED, WITH MINIMAL BLOOD LOSS. PICC LUMEN COMPLETELY INTACT. [facility] STAFF HERE. GAVE REPORT TO [facility].
--- NOTE | 2019-01-19 12:18 | NUR ---
PATIENT LEFT WITH [facility] STAFF TO [facility] EXTENDED CARE IN STABLE CONDITION.
== END 2019-01-19 12:18 | DRG 720 ==
LOC: MED 22:54 → MIC 01-07 00:38 → MTU 01-09 16:42
PROVIDERS: ADMIT General Practice; ATTEND General Practice
PROC: 5A1955Z Respiratory Ventilation, Greater than 96 Consecutive Hours (ICD-10-PCS; principal; 2019-01-07)
PROC: 02HV33Z Insertion of Infusion Device into Superior Vena Cava, Percutaneous Approach (ICD-10-PCS; 2019-01-07)
PROC: B548ZZA Ultrasonography of Superior Vena Cava, Guidance (ICD-10-PCS; 2019-01-07)
PROC: 5A12012 Performance of Cardiac Output, Single, Manual (ICD-10-PCS; 2019-01-07)
PROC: 30233N1 Transfusion of Nonautologous Red Blood Cells into Peripheral Vein, Percutaneous Approach (ICD-10-PCS; 2019-01-17)
DX: A41.9 Sepsis, unspecified organism (principal); J69.0 Pneumonitis due to inhalation of food and vomit; I46.9 Cardiac arrest, cause unspecified; E43 Unspecified severe protein-calorie malnutrition; G93.41 Metabolic encephalopathy; J15.1 Pneumonia due to Pseudomonas; Z99.11 Dependence on respirator [ventilator] status; J96.21 Acute and chronic respiratory failure with hypoxia; Z93.0 Tracheostomy status; R65.21 Severe sepsis with septic shock; K31.84 Gastroparesis; I50.43 Acute on chronic combined systolic (congestive) and diastolic (congestive) heart failure; D53.9 Nutritional anemia, unspecified; D63.8 Anemia in other chronic diseases classified elsewhere; E83.42 Hypomagnesemia; E87.1 Hypo-osmolality and hyponatremia; F20.9 Schizophrenia, unspecified; I11.0 Hypertensive heart disease with heart failure; I25.10 Atherosclerotic heart disease of native coronary artery without angina pectoris; I48.0 Paroxysmal atrial fibrillation; J44.0 Chronic obstructive pulmonary disease with (acute) lower respiratory infection; K21.9 Gastro-esophageal reflux disease without esophagitis; K56.7 Ileus, unspecified; N17.9 Acute kidney failure, unspecified; R13.11 Dysphagia, oral phase; Y95 Nosocomial condition; E83.41 Hypermagnesemia; E02 Subclinical iodine-deficiency hypothyroidism; K59.8 Other specified functional intestinal disorders; I42.9 Cardiomyopathy, unspecified; I25.2 Old myocardial infarction; Z91.19 Patient's noncompliance with other medical treatment and regimen; Z93.1 Gastrostomy status; Z68.23 Body mass index [BMI] 23.0-23.9, adult; Z74.01 Bed confinement status
CPT/HCPCS: 36415; 36600; 71045; 74018; 76700; 80048; 80053; 80202; 81003; 82140; 82272; 82607; 82728; 82746; 82803; 83036; 83540; 83605; 83690; 83735; 83880; 84100; 84439; 84443; 84484; 85025; 85045; 85610; 85730; 86886; 86900; 86901; 86920; 87040; 87070; 87081; 87086; 87186; 87205; 87804; 89220; 93005; 94003; 94640; 96361; 96365; 97161-GP; 99285; C1751; J0282; J1160; J1644; J1940; J1956; J2001; J2185; J2270; J2543; J2765; J2916; J3370; J3480; J3490; J7030; J7042; J7060; J7620; J8597; P9016; Q0092; Q0163

== ENCOUNTER 2020-01-29 16:45 | Emergency (ER) | payer MEDICARE, OTHER ==
[~2020-01-29] VITALS: Ht 182.9 cm; Wt 86.2 kg
[~2020-01-29 16:45] MED LIST: AMLO5TAB GT; ASCO500T45 PO; CARV12.52 PO; DOCU250S72 GT; FAMO-90 GT; FER300L GT; FERR325E14 GT; FURO20TA8 PO; GUAI-920 GT; LACT10CA PO; LACT10SO11 PO; MAGN1.753 GT; METO-485 PO; METO5SOL20 GT; MIRABULK GT; MIRT15TA GT; MULT-2253 GT; OLAN2.5T1 GT; SENN-72 GT; ZGUARD TP
[2020-01-29 16:48] VITALS: BP 156/55
[2020-01-29 16:53] VITALS: BP 155/77
--- NOTE | 2020-01-29 16:58 | NUR ---
Note undone in EDM - 01/29/20 at 1730 by [email or web address] BIBCr W C/O ABD LABS HGB 6.6. PT IS ON TRACH-VENTILATOR W/O RESPIRITORY DISTRESS NOTICED. G-TUBE IS CLEAN AND IN PLACE W/O LEAKING. SKIN IS PALE/DRY/WARM, NO EDEMA ON UPPER AND LOWER EXTREMITIES. PT IS NON-VERBAL BUT A&OX3. PATIENT STATES PAIN OF 0/10 AT THIS TIME; VSS; PATIENT POSITIONED FOR COMFORT; HOB ELEVATED; BEDRAILS UP X2; BED DOWN. ER MD MADE AWARE OF PT STATUS.
--- NOTE | 2020-01-29 17:00 | NUR ---
LABS DRAWN AND SENT TO THE LAB.
--- NOTE | 2020-01-29 17:00 | NUR ---
Blake romano in [facility] - 01/29/20 at 1730 by MEDKYA LABS DRAWN AND SENT TO THE LAB.
[2020-01-29 17:20] LABS: BASOPHILS % (AUTO) 0.3 % (0.0-2.0); EOSINOPHILS # (AUTO) 0.4 K/uL (0-0.4); EOSINOPHILS % (AUTO) 7.2 % (0.0-4.0); HEMATOCRIT 23.2 % (36-52); HEMOGLOBIN 7.6 g/dL (12.0-18.0); LYMPHOCYTES # (AUTO) 0.9 K/uL (2.0-11.5); MEAN CORPUSCULAR HEMOGLOBIN 35 pg (27-31); MEAN CORPUSCULAR HGB CONC 33 g/dL (33-37); MEAN CORPUSCULAR VOLUME 104.6 fL (80-94); MONOCYTES # (AUTO) 0.6 K/uL (0.8-1.0); MONOCYTES % (AUTO) 12.1 % (1.7-9.3); NEUTROPHILS # (AUTO) 3.2 K/uL (1.8-7.7); NEUTROPHILS % (AUTO) 62.4 % (42.2-75.2); PLATELET COUNT (AUTO) 200 K/uL (140-450); RED BLOOD CELL COUNT(AUTO) 2.22 MIL/uL (4.20-6.10); WHITE BLOOD COUNT (AUTO) 5.2 K/uL (4.8-10.8)
[2020-01-29 17:42] LABS: ANION GAP 11.8 (8-16); CARBON DIOXIDE 27.7 mmol/L (21-32); CHLORIDE 107 mmol/L (98-107); CREATININE 0.8 mg/dL (0.6-1.3); GLUCOSE 97 mg/dL (74-106); POTASSIUM 4.5 mmol/L (3.5-5.1); SODIUM SERUM 142 mmol/L (136-145); UREA NITROGEN, BLOOD 32 mg/dL (7-18)
--- NOTE | 2020-01-29 18:04 | NUR ---
CALLED FRANCES AT PHONE #: LEFT NO ANSWER, WILL CALL LATER.
[2020-01-29 18:14] LABS: PROTHROMBIN TIME 10.2 secs (10.8-13.4)
--- NOTE | 2020-01-29 18:17 | NUR ---
Patient to be transferred back to [facility], room 2, bed C. Patient belongings inventoried and will be sent with patient. Copy of nursing notes, lab reports, Physicians Orders will be sent with patient. Report called to PAUL Garsia at receiving facility.
--- NOTE | 2020-01-29 18:34 | NUR ---
CALLED [facility] AGAIN AND SPOKE TO KAYLEE WITH PROVIDING THE ETA OF ONE HOUR.
[2020-01-29 19:09] VITALS: BP 122/54
--- NOTE | 2020-01-29 19:09 | NUR ---
[facility] IS TRANSFERRING PATIENT AT BEDSIDE WITH RT'S ASSISTANCE. AMBU-BAG PROVIDED TO [facility]. PT'S VSS. IV ON LEFT WRIST REMOVED AND COVERED WITH DRESSING W/O BLEEDING.
== END 2020-01-29 19:09 | disposition home or self-care (01) ==
LOC: MED 16:45
DX: D64.9 Anemia, unspecified (principal); F20.9 Schizophrenia, unspecified; E78.5 Hyperlipidemia, unspecified; J44.9 Chronic obstructive pulmonary disease, unspecified; I25.2 Old myocardial infarction; I10 Essential (primary) hypertension; Z98.890 Other specified postprocedural states; Z79.899 Other long term (current) drug therapy
CPT/HCPCS: 36415; 80048; 85025; 85610; 85730; 86886; 86900; 86901; 89220; 99283